=== PATIENT | male | born 1955 | race Caucasian/White ===

== ENCOUNTER 2016-09-11 22:42 | Emergency (ER) | payer OTHER ==
[2016-09-11] MEDS ORDERED: NS 1,000 ML IV ONE (22:58)
[2016-09-11] MEDS ORDERED: NS 2,100 ML IV ONE (22:59)
--- NOTE | 2016-09-11 23:02 | EDPHY ---
H & P HPI/ROS: HPI CHIEF COMPLAINT: Back pain, fever HISTORY OF PRESENT ILLNESS: This patient is 61-year-old male, presents emergency room with fever, tachycardia however normotensive, he has significant past medical history for bladder cancer status post bladder reconstructive surgery followed at [facility] he presents to the emergency room with feeling ill , fever and back pain. This patient tells me that he started developing fever back pain earlier today. Left-sided and right-sided CVA tenderness. No nausea vomiting. He had surgery at [facility] on the of last month. Close to a month ago. He has a bladder made out of intestines. He has a drain present. And a in-dwelling Vyas catheter. He called [facility] today, was unable to get in contact with them finally did was referred to the emergency room here. He denies chest pain or shortness of breath. Denies cough. Denies abdominal pain. Past Medical History: Depression, adrenal insufficiency, hyponatremia thyroid disease, bladder cancer, indwelling Vyas catheter, mantle Cell CA Past Surgical History: Bladder reconstruction surgery Social History: Denies daily use drugs alcohol tobacco products Family History: Noncontributory ROS REVIEW OF SYSTEMS: A comprehensive 10 point review of systems is otherwise negative aside from elements mentioned in the history of present illness. Exam Constitutional appears well nontoxic triage nursing summary reviewed, vital signs reviewed, awake/alert. Vital signs are noted to be febrile, tachycardic Eyes normal conjunctivae and sclera, EOMI, PERRLA. HENT normal inspection, atraumatic, moist mucus membranes, no epistaxis, neck supple/ no meningismus, no raccoon eyes. Respiratory clear to auscultation bilaterally, normal breath sounds, no respiratory distress, no wheezing. Cardiovascular tachycardia, regular rhythm, no murmur, no edema, distal pulses normal. Gastrointestinal soft, non-tender, no rebound, no guarding, normal bowel sounds, no distension, no pulsatile mass. Genitourinary no CVA tenderness. Musculoskeletal no midline vertebral tenderness, full range of motion, no calf swelling, no tenderness of extremities, no meningismus, good pulses, neurovascularly intact. Skin pink, warm, & dry, no rash, skin atraumatic. Neurologic awake, alert and oriented x 3, AAOx3, moves all 4 extremities equally, motor intact, sensory intact, CN II-XII intact, normal cerebellar, normal vision, normal speech. Psychiatric normal mood/affect. Heme/Lymph/Immune no lymphadenopathy. Differential Diagnosis: Includes but is not limited to in a particular order, urinary tract infection with sepsis, pyelonephritis, intra-abdominal abscess, severe sepsis, septic shock, bacteremia Medical Decision Making: Plan for this patient IV establishment, IV fluid bolus 30 mL/kilos. Fever controlled antipyretics Tylenol, check blood work, lactic acid, blood cultures, urinalysis, urine culture I will touch base with in [facility]. Re-evaluation: EKG interpretation by me on record in [facility] system. Impression time of EKG 05/08/1932, this is sinus tachycardia rate of 103. There is no acute ischemic changes on this EKG. Specifically no ST elevation, ST depression, prolonged intervals. There is no signs of cardiac arrhythmia. 1211AM: This patient is septic. Fever and tachycardic. I did speak with [facility] Dr. Cooper the urologist. He has accepted this patient in transfer given that he has bladder cancer status post bladder resection. Patient is hemodynamically stable at this time no acute distress. He safe for transfer. 1217 urinalysis indicates urinary tract infection. 1 g Rocephin has been given. Blood culture sent. Urine culture sent. Ultrasound has been done shows bilateral hydronephrosis. All this information be sent to [facility]. Patient be admitted to step-down unit. I do not feel he needs ICU care at this time. Lactic acid less than 2. Not hypotensive. I have updated the family they are agreeable for transfer. Source: Patient - Medical/Surgical History Hx Asthma: No Hx Chronic Respiratory Disease: No Hx Diabetes: No Hx Cardiac Disease: No Hx Renal Disease: No Hx Cirrhosis: No Hx Alcoholism: No Hx HIV/AIDS: No Hx Splenectomy or Spleen Trauma: No Other PMH: Rosemary's hypothyroidism, oral surgery, neck issues, adrenal insufficiency, bladder ca, mantle cell lymphoma, bladder removed - surg to create bladder from intestine - Social History Smoking Status: Former smoker Constitutional: Initial Vital Signs Temperature (C) 39.5 C H 09/11/16 22:47 Heart Rate 105 H 09/11/16 22:47 Respiratory Rate 20 09/11/16 22:47 Blood Pressure 122/69 H 09/11/16 22:47 O2 Sat (%) 93 09/11/16 22:47 O2 Delivery Mode Nasal Cannula O2 (L/minute) 2 Allergies/Adverse Reactions: amoxicillin Allergy (Verified 09/11/16 22:50) Home Medications: Medication Instructions Recorded Acetaminophen [Tylenol ES 500 mg 1,000 mg PO DAILY PRN 10/25/15 (*)] HYDROCORTISONE 15 mg PO DAILY 10/25/15 Levothyroxine Sodium 137 mcg PO DAILY@06 10/25/15 Hydrocortisone [Cortef 10 mg (*)] 5 mg PO DAILY@14 #0 tab 10/26/15 Colace 09/11/16 TESTOSTERONE 09/11/16 oxyCODONE CR 09/11/16 Medical Decision Making - Diagnostics Imaging Results: Imaging Impressions Abdomen/Pelvis Ultrasound 09/11/16 23:07 Impression: 1. Mild bilateral hydronephrosis. 2. Vyas catheter in the bladder which is empty. Findings and recommendations discussed with Emergency Department physician, Davis Garner MD at 0:11 hour, 09/12/2016. Final report concurs with initial preliminary interpretation. - Data Points Laboratory Results: Laboratory Results 09/11/16 23:10 09/11/16 23:10 09/11/16 09/11/16 09/11/16 23:14 23:10 23:10 WBC RBC Hgb POC Hgb 12.6 gm/dL L gm/dL (13.7-17.5) Hct POC Hct 37 % L % (40-51) MCV MCH MCHC RDW Plt Count MPV Neut % (Auto) Lymph % (Auto) Parmer % (Auto) Eos % (Auto) Baso % (Auto) Nucleat RBC Rel Count Absolute Neuts (auto) Absolute Lymphs (auto) Absolute Monos (auto) Absolute Eos (auto) Absolute Basos (auto) Absolute Nucleated RBC Immature Gran % Immature Gran # PT INR APTT VBG Lactic Acid POC Sodium 138 mEq/L mEq/L (134-144) Sodium 133 mEq/L L mEq/L (134-144) POC Potassium 3.6 mEq/L mEq/L (3.3-5.0) Potassium 3.9 mEq/L mEq/L (3.5-5.2) POC Chloride 102 mEq/L mEq/L (97-110) Chloride 103 mEq/L mEq/L (97-110) Carbon Dioxide 21 mEq/l L mEq/l (22-31) Anion Gap 9 mEq/L mEq/L (8-16) POC BUN 19 mg/dL mg/dL (7-23) BUN 19 mg/dL mg/dL (7-23) Creatinine 1.6 mg/dL H mg/dL (0.7-1.3) POC Creatinine 1.5 mg/dL H mg/dL (0.7-1.3) Estimated GFR 44 Glucose 87 mg/dL mg/dL (70-100) POC Glucose 88 mg/dL mg/dL (70-100) Calcium 9.4 mg/dL mg/dL (8.5-10.4) Total Bilirubin 0.5 mg/dL mg/dL (0.1-1.4) Conjugated Bilirubin 0.2 mg/dL mg/dL (0.0-0.5) Unconjugated Bilirubin 0.3 mg/dL mg/dL (0.0-1.1) AST 23 IU/L IU/L (17-59) ALT 29 IU/L IU/L (21-72) Alkaline Phosphatase 80 IU/L IU/L (38-126) Total Protein 8.1 g/dL g/dL (6.3-8.2) Albumin 4.1 g/dL g/dL (3.5-5.0) Lipase 58.0 IU/L IU/L (23-300) Urine Color YELLOW Urine Appearance MODERATELY TURBID Urine pH 7.0 (5.0-7.5) Ur Specific Wilson 1.012 (1.002-1.030) Urine Protein 2+ H (NEGATIVE) Urine Ketones NEGATIVE (NEGATIVE) Urine Blood 3+ H (NEGATIVE) Urine Nitrate POSITIVE H (NEGATIVE) Urine Bilirubin NEGATIVE (NEGATIVE) Urine Urobilinogen NEGATIVE EU EU (0.2-1.0) Ur Leukocyte Esterase 3+ H (NEGATIVE) Urine RBC 50-182 /hpf H /hpf (0-3) Urine WBC 50-182 /hpf H /hpf (0-3) Ur Epithelial Cells NONE SEEN /lpf /lpf (NONE-1+) Urine Bacteria TRACE /hpf H /hpf (NONE SEEN) Urine Mucus 1+ /lpf /lpf (NONE-1+) Urine Glucose NEGATIVE (NEGATIVE) 09/11/16 09/11/16 09/11/16 23:10 23:10 23:10 WBC 6.74 10^3/uL 10^3/uL (3.80-9.50) RBC 3.35 10^6/uL L 10^6/uL (4.40-6.38) Hgb 10.2 g/dL L g/dL (13.7-17.5) POC Hgb Hct 31.7 % L % (40.0-51.0) POC Hct MCV 94.6 fL fL (81.5-99.8) MCH 30.4 pg pg (27.9-34.1) MCHC 32.2 g/dL L g/dL (32.4-36.7) RDW 13.6 % % (11.5-15.2) Plt Count 328 10^3/uL 10^3/uL (150-400) MPV 9.1 fL fL (8.7-11.7) Neut % (Auto) 66.2 % % (39.3-74.2) Lymph % (Auto) 26.0 % % (15.0-45.0) Parmer % (Auto) 7.1 % % (4.5-13.0) Eos % (Auto) 0.0 % L % (0.6-7.6) Baso % (Auto) 0.7 % % (0.3-1.7) Nucleat RBC Rel Count 0.0 % % (0.0-0.2) Absolute Neuts (auto) 4.46 10^3/uL 10^3/uL (1.70-6.50) Absolute Lymphs (auto) 1.75 10^3/uL 10^3/uL (1.00-3.00) Absolute Monos (auto) 0.48 10^3/uL 10^3/uL (0.30-0.80) Absolute Eos (auto) 0.00 10^3/uL L 10^3/uL (0.03-0.40) Absolute Basos (auto) 0.05 10^3/uL 10^3/uL (0.02-0.10) Absolute Nucleated RBC 0.00 10^3/uL 10^3/uL (0-0.01) Immature Gran % 0.0 % % (0.0-1.1) Immature Gran # 0.00 10^3/uL 10^3/uL (0.00-0.10) PT 13.8 SEC SEC (12.0-15.0) INR 1.07 (0.83-1.16) APTT 27.5 SEC SEC (23.0-38.0) VBG Lactic Acid 1.2 mmol/L mmol/L (0.7-2.1) POC Sodium Sodium POC Potassium Potassium POC Chloride Chloride Carbon Dioxide Anion Gap POC BUN BUN Creatinine POC Creatinine Estimated GFR Glucose POC Glucose Calcium Total Bilirubin Conjugated Bilirubin Unconjugated Bilirubin AST ALT Alkaline Phosphatase Total Protein Albumin Lipase Urine Color Urine Appearance Urine pH Ur Specific Wilson Urine Protein Urine Ketones Urine Blood Urine Nitrate Urine Bilirubin Urine Urobilinogen Ur Leukocyte Esterase Urine RBC Urine WBC Ur Epithelial Cells Urine Bacteria Urine Mucus Urine Glucose Medications Given: Discontinued Medications Sodium Chloride (Ns) 1,000 mls @ 0 mls/hr IV EDNOW ONE; Wide Open PRN Reason: Protocol Stop: 09/11/16 22:59 Last Admin: 09/11/16 23:25 Dose: 1,000 mls Sodium Chloride (Ns) 2,100 mls @ 4,200 mls/hr 30 ml/kg infuse over 30 min ( 2100 ml) IV EDNOW ONE PRN Reason: Protocol Stop: 09/11/16 23:28 Last Admin: 09/11/16 23:50 Dose: 2,100 mls Ceftriaxone Sodium/Dextrose (Rocephin 1 Gm (Premix)) 50 mls @ 100 mls/hr IV EDNOW ONE PRN Reason: Protocol Stop: 09/12/16 00:16 Last Admin: 09/11/16 23:35 Dose: 50 mls Point of Care Test Results: 09/11/16 23:14 POC Sodium 138 POC Potassium 3.6 POC Chloride 102 POC BUN 19 POC Creatinine 1.5 H POC Glucose 88 Departure - Departure Disposition: [facility] Not [facility] Clinical Impression: UTI (urinary tract infection) Qualifiers: Urinary tract infection type: acute cystitis Hematuria presence: without hematuria Qualified Code(s): N30.00 - Acute cystitis without hematuria Sepsis Qualifiers: Sepsis type: sepsis due to unspecified organism Qualified Code(s): A41.9 - Sepsis, unspecified organism Condition: Fair Referrals: Tristan Cronin, [Primary Care Provider] - As per Instructions
[2016-09-11 23:31] LABS: COLOR YELLOW; LEUKOCYTE ESTERASE,URINE 3+ (NEGATIVE); NITRITE,URINE POSITIVE (NEGATIVE)
[2016-09-11 23:33] LABS: ADD DIFF? NO; ADD MORPH? NO; ADD SCAN? NO; ATYPICAL LYMPHOCYTE FLAG 20 (0-99); FRAGMENT RBC FLAG 0 (0-99); HEMATOCRIT 31.7 % (40.0-51.0); HEMOGLOBIN 10.2 g/dL (13.7-17.5); LEFT SHIFT FLG 0 (0-99); LIPEMIA HEMOLYSIS FLAG 80 (0-99); MEAN CELL HEMOGLOBIN 30.4 pg (27.9-34.1); MEAN CELL HEMOGLOBIN CONCENTR. 32.2 g/dL (32.4-36.7); MEAN CELL VOLUME 94.6 fL (81.5-99.8); MEAN PLATELET VOLUME 9.1 fL (8.7-11.7); PLATELET CLUMPS FLAG 0 (0-99); PLATELET COUNT 328 10^3/uL (150-400); RED BLOOD CELL COUNT 3.35 10^6/uL (4.40-6.38); RED CELL DISTRIBUTION WIDTH 13.6 % (11.5-15.2)
[2016-09-11 23:34] LABS: ALANINE AMINOTRANSFERASE 29 IU/L (21-72); ALBUMIN 4.1 g/dL (3.5-5.0); ALKALINE PHOSPHATASE 80 IU/L (38-126); ANION GAP 9 mEq/L (8-16); ASPARTATE AMINOTRANSFERASE 23 IU/L (17-59); BILIRUBIN,TOTAL 0.5 mg/dL (0.1-1.4); BILIRUBIN-CONJUGATED 0.2 mg/dL (0.0-0.5); BILIRUBIN-UNCONJUGATED 0.3 mg/dL (0.0-1.1); CALCIUM 9.4 mg/dL (8.5-10.4); CARBON DIOXIDE 21 mEq/l (22-31); CHLORIDE 103 mEq/L (97-110); CREATININE 1.6 mg/dL (0.7-1.3); GLOMERULAR FILTRATION RATE 44; GLUCOSE 87 mg/dL (70-100); POTASSIUM 3.9 mEq/L (3.5-5.2); SODIUM 133 mEq/L (134-144); TOTAL PROTEIN 8.1 g/dL (6.3-8.2)
--- NOTE | 2016-09-11 23:35 | CPEKG ---
Heart Rate: 103 RR Interval: 583 P-R Interval: 132 QRSD Interval: 86 QT Interval: 320 QTC Interval: 419 P Seminole: 55 QRS Seminole: 35 T Wave Seminole: 52 EKG Severity - OTHERWISE NORMAL ECG - EKG Impression: SINUS TACHYCARDIA Electronically Signed By: Davis Garner 12-Sep-2016 04:48:56
[2016-09-11 23:42] LABS: INR 1.07 (0.83-1.16); PROTIME(PATIENT) 13.8 SEC (12.0-15.0)
[2016-09-11 23:43] LABS: APTT 27.5 SEC (23.0-38.0)
[2016-09-12 00:22] LABS: BACTERIA TRACE /hpf (NONE SEEN); MUCUS 1+ /lpf (NONE-1+); RBC,URINE 50-182 /hpf (0-3); WBC,URINE 50-182 /hpf (0-3)
[2016-09-12] MEDS ORDERED: IBUPROFEN 600 MG TAB PO ONE (00:25)
[2016-09-12] MEDS ORDERED: ACETAMINOPHEN 500 MG TAB PO ONE (00:25)
[2016-09-12] MEDS ORDERED: NS 1,000 ML IV ONE (00:49)
[2016-09-12 02:41] VITALS: RESP 20
[2016-09-12 03:46] VITALS: BP 104/74; PULSE 114; TEMP 102.6; O2SAT 99
== END 2016-09-12 03:48 | disposition short-term general hospital (02) ==
DX: A41.9 Sepsis, unspecified organism (principal); N30.00 Acute cystitis without hematuria; E86.9 Volume depletion, unspecified; N13.30 Unspecified hydronephrosis; Z87.891 Personal history of nicotine dependence
CPT/HCPCS: 82947-QW; 96365; J0696

== ENCOUNTER 2016-10-16 16:59 | Emergency (ER) | payer OTHER ==
[2016-10-16 17:11] VITALS: TEMP 97.7
[2016-10-16] MEDS ORDERED: ONDANSETRON 4 MG/2 ML VIAL ONE (17:23)
[2016-10-16] MEDS ORDERED: ONDANSETRON 4 MG/2 ML VIAL IVP ONE (17:25)
[2016-10-16] MEDS ORDERED: NS 1,000 ML IV ONE (17:25)
--- NOTE | 2016-10-16 17:36 | EDPHY ---
H & P Stated Complaint: Acute R flank pain;ureteral stents removed Sunday Time Seen by Provider: 10/16/16 17:13 HPI/ROS: CHIEF COMPLAINT: Acute right flank pain, history of neobladder reconstruction, ureteral stent remove Sunday HISTORY OF PRESENT ILLNESS: The patient has a history of bladder cancer. He is status post neobladder reconstruction several months ago. The patient did have a postoperative course complicated by bacteremia and urinary tract infection which required IV antibiotic therapy. The patient completed IV antibiotics 3 weeks ago. The patient had removal of his ureteral stents 3 days ago was started on Levaquin. The patient presents to the ED with complaints of acute right flank pain, nausea and vomiting that began several hours prior to arrival. The patient rates his pain as a 10/10. He denies additional complaints of fever or chills. The patient denies any recent medication changes aside from the Levaquin. REVIEW OF SYSTEMS: A comprehensive 10 point review of systems is otherwise negative aside from elements mentioned in the history of present illness. Source: Patient Exam Limitations: No limitations - Personal History Current Tetanus Diphtheria and Acellular Pertussis (TDAP): Yes - Medical/Surgical History Hx Asthma: No Hx Chronic Respiratory Disease: No Hx Diabetes: No Hx Cardiac Disease: No Hx Renal Disease: No Hx Cirrhosis: No Hx Alcoholism: No Hx HIV/AIDS: No Hx Splenectomy or Spleen Trauma: No Other PMH: Rosemary's hypothyroidism, oral surgery, neck issues, adrenal insufficiency, bladder ca, mantle cell lymphoma, bladder removed - surg to create bladder from intestine - Social History Smoking Status: Former smoker - Physical Exam Exam: General Appearance: Alert, moderate discomfort secondary to pain Eyes: Pupils equal and round no pallor or injection ENT, Mouth: Mucous membranes moist Respiratory: There are no retractions, lungs are clear to auscultation Cardiovascular: Regular rate and rhythm Gastrointestinal: Tenderness to palpation right mid quadrant, right CVA tenderness Neurological: A&O, normal motor function, normal sensory exam, normal cranial nerves Skin: Warm and dry, no rashes Musculoskeletal: Neck is supple nontender Extremities: symmetrical, full range of motion Constitutional: Initial Vital Signs Temperature (C) 36.5 C 10/16/16 17:06 Heart Rate 71 10/16/16 17:06 Respiratory Rate 20 10/16/16 17:06 Blood Pressure 116/72 10/16/16 17:06 O2 Sat (%) 98 10/16/16 17:06 O2 Delivery Mode Room Air Allergies/Adverse Reactions: amoxicillin Allergy (Mild, Verified 10/16/16 17:05) ? n/v Home Medications: Medication Instructions Recorded Acetaminophen [Tylenol ES 500 mg 1,000 mg PO DAILY PRN 10/25/15 (*)] HYDROCORTISONE 15 mg PO DAILY 10/25/15 Levothyroxine Sodium 137 mcg PO DAILY@06 10/25/15 Hydrocortisone [Cortef 10 mg (*)] 5 mg PO DAILY@14 #0 tab 10/26/15 Colace 09/11/16 TESTOSTERONE 09/11/16 oxyCODONE CR 09/11/16 levOFLOXACIN [levAQUIN (*)] 500 mg PO 10/16/16 Medical Decision Making - Diagnostics Imaging Results: Imaging Impressions Abdomen/Pelvis Ultrasound 10/16/16 17:33 Impression: Moderate bilateral hydronephrosis, which has worsened from August 2016. Neobladder visualized with the volume approximating 366 mL. Results called and discussed with Dr. Pasha Hendrix on October 16, 2016 at 1855 hours. ED Course/Re-evaluation: ER course/discussion: I reviewed the patient's past medical records. The patient presents to the ED with acute right flank pain. The patient's creatinine is elevated 2.6 from his prior baseline of 1.6. The patient was taken for a stat retroperitoneal ultrasound which demonstrates right-sided hydronephrosis consistent with an acute obstruction of the right ureter. The patient has a normal bladder volume of 200 mL. The patient received IV morphine, IV Ativan, IV lidocaine for control of his pain. Consultation was made with Dr. Narvaez who is on-call for your urology-oncology at the [facility] who has accepted the patient for transfer given the patient's neobladder reconstruction and recent surgical intervention. 7:30 p.m.: The patient continues to have fairly moderate to severe pain. The patient received an IV lidocaine drip with improvement of his symptoms. The patient will be transferred to [facility] at 8:30 p.m. for further care. Differential Diagnosis: Differential diagnosis considered includes urinary retention, ureteral obstruction, renal failure, sepsis, urinary tract infection, metabolic abnormality, renal failure, hyperkalemia - Data Points Laboratory Results: Laboratory Results 10/16/16 17:30 10/16/16 17:30 10/16/16 10/16/16 17:30 17:30 WBC 8.53 10^3/uL 10^3/uL (3.80-9.50) RBC 3.51 10^6/uL L 10^6/uL (4.40-6.38) Hgb 10.3 g/dL L g/dL (13.7-17.5) Hct 32.3 % L % (40.0-51.0) MCV 92.0 fL fL (81.5-99.8) MCH 29.3 pg pg (27.9-34.1) MCHC 31.9 g/dL L g/dL (32.4-36.7) RDW 14.5 % % (11.5-15.2) Plt Count 295 10^3/uL 10^3/uL (150-400) MPV 9.3 fL fL (8.7-11.7) Neut % (Auto) 59.6 % % (39.3-74.2) Lymph % (Auto) 30.6 % % (15.0-45.0) Loving % (Auto) 9.0 % % (4.5-13.0) Eos % (Auto) 0.0 % L % (0.6-7.6) Baso % (Auto) 0.6 % % (0.3-1.7) Nucleat RBC Rel Count 0.0 % % (0.0-0.2) Absolute Neuts (auto) 5.08 10^3/uL 10^3/uL (1.70-6.50) Absolute Lymphs (auto) 2.61 10^3/uL 10^3/uL (1.00-3.00) Absolute Monos (auto) 0.77 10^3/uL 10^3/uL (0.30-0.80) Absolute Eos (auto) 0.00 10^3/uL L 10^3/uL (0.03-0.40) Absolute Basos (auto) 0.05 10^3/uL 10^3/uL (0.02-0.10) Absolute Nucleated RBC 0.00 10^3/uL 10^3/uL (0-0.01) Immature Gran % 0.2 % % (0.0-1.1) Immature Gran # 0.02 10^3/uL 10^3/uL (0.00-0.10) Sodium 140 mEq/L mEq/L (134-144) Potassium 5.3 mEq/L H mEq/L (3.5-5.2) Chloride 108 mEq/L mEq/L (97-110) Carbon Dioxide 18 mEq/l L mEq/l (22-31) Anion Gap 14 mEq/L mEq/L (8-16) BUN 43 mg/dL H mg/dL (7-23) Creatinine 2.6 mg/dL H mg/dL (0.7-1.3) Estimated GFR 25 Glucose 100 mg/dL mg/dL (70-100) Calcium 9.6 mg/dL mg/dL (8.5-10.4) Medications Given: Discontinued Medications Sodium Chloride (Ns) 1,000 mls @ 0 mls/hr IV ONCE ONE; Wide Open PRN Reason: Protocol Stop: 10/16/16 17:26 Last Admin: 10/16/16 17:27 Dose: 1,000 mls Ketamine HCl (Ketamine) 25 mg IVP EDNOW ONE Stop: 10/16/16 18:03 Last Admin: 10/16/16 18:05 Dose: 25 mg Lorazepam (Ativan Injection) 1 mg IVP EDNOW ONE Stop: 10/16/16 19:01 Last Admin: 10/16/16 19:05 Dose: 1 mg Morphine Sulfate (Morphine) 4 mg IVP EDNOW ONE Stop: 10/16/16 17:26 Last Admin: 10/16/16 17:27 Dose: 4 mg Morphine Sulfate (Morphine) 4 mg IVP EDNOW ONE Stop: 10/16/16 17:46 Last Admin: 10/16/16 17:46 Dose: 4 mg Ondansetron HCl (Zofran) 4 mg IVP EDNOW ONE Stop: 10/16/16 17:26 Last Admin: 10/16/16 17:27 Dose: 4 mg Departure - Departure Disposition: Acute Care Hospital Not [facility] Clinical Impression: Hydronephrosis, Bladder cancer, Abdominal pain Renal failure Qualifiers: Renal failure chronicity: acute on chronic Condition: Good Referrals: Tristan Cronin, [Primary Care Provider] - As per Instructions
[2016-10-16 17:44] LABS: % IMMATURE GRANULYOCYTES 0.2 % (0.0-1.1); ABSOLUTE IMMATURE GRANULOCYTES 0.02 10^3/uL (0.00-0.10); ADD DIFF? NO; ADD MORPH? NO; ADD SCAN? NO; ATYPICAL LYMPHOCYTE FLAG 10 (0-99); FRAGMENT RBC FLAG 20 (0-99); HEMATOCRIT 32.3 % (40.0-51.0); HEMOGLOBIN 10.3 g/dL (13.7-17.5); LEFT SHIFT FLG 0 (0-99); LIPEMIA HEMOLYSIS FLAG 80 (0-99); MEAN CELL HEMOGLOBIN 29.3 pg (27.9-34.1); MEAN CELL HEMOGLOBIN CONCENTR. 31.9 g/dL (32.4-36.7); MEAN PLATELET VOLUME 9.3 fL (8.7-11.7); PLATELET CLUMPS FLAG 10 (0-99); PLATELET COUNT 295 10^3/uL (150-400); RED BLOOD CELL COUNT 3.51 10^6/uL (4.40-6.38); RED CELL DISTRIBUTION WIDTH 14.5 % (11.5-15.2)
[2016-10-16] MEDS ORDERED: KETAMINE 100 MG/10 ML SYR ONE (18:01)
[2016-10-16] MEDS ORDERED: KETAMINE 500 MG/10 ML VIAL IVP ONE (18:02)
[2016-10-16 18:21] LABS: ANION GAP 14 mEq/L (8-16); CALCIUM 9.6 mg/dL (8.5-10.4); CARBON DIOXIDE 18 mEq/l (22-31); CHLORIDE 108 mEq/L (97-110); CREATININE 2.6 mg/dL (0.7-1.3); GLOMERULAR FILTRATION RATE 25; GLUCOSE 100 mg/dL (70-100); POTASSIUM 5.3 mEq/L (3.5-5.2); SODIUM 140 mEq/L (134-144)
[2016-10-16] MEDS ORDERED: LORazepam 2 MG/ML INJ IVP ONE (19:00)
[2016-10-16] MEDS ORDERED: LIDOCAINE 1% 200 MG in NS 100 ML IV ONE (19:01)
[2016-10-16 20:18] VITALS: BP 127/73; PULSE 72; RESP 20; O2SAT 100
== END 2016-10-16 20:16 | disposition short-term general hospital (02) ==
DX: C67.9 Malignant neoplasm of bladder, unspecified (principal); N13.30 Unspecified hydronephrosis; N17.9 Acute kidney failure, unspecified; N18.9 Chronic kidney disease, unspecified; E86.9 Volume depletion, unspecified; Z87.891 Personal history of nicotine dependence
CPT/HCPCS: 96374; J2060; J2405

== ENCOUNTER 2016-11-15 20:50 | Inpatient (IN) | payer OTHER ==
[2016-11-15] MEDS ORDERED: NS 1,000 ML IV ONE ×2 (21:15→22:42)
[2016-11-15 21:24] LABS: % IMMATURE GRANULYOCYTES 0.4 % (0.0-1.1); ABSOLUTE IMMATURE GRANULOCYTES 0.04 10^3/uL (0.00-0.10); ADD DIFF? NO; ADD MORPH? NO; ADD SCAN? NO; ATYPICAL LYMPHOCYTE FLAG 10 (0-99); FRAGMENT RBC FLAG 0 (0-99); HEMATOCRIT 34.5 % (40.0-51.0); HEMOGLOBIN 10.9 g/dL (13.7-17.5); LEFT SHIFT FLG 0 (0-99); LIPEMIA HEMOLYSIS FLAG 80 (0-99); MEAN CELL HEMOGLOBIN CONCENTR. 31.6 g/dL (32.4-36.7); MEAN CELL VOLUME 88.7 fL (81.5-99.8); MEAN PLATELET VOLUME 9.3 fL (8.7-11.7); PLATELET CLUMPS FLAG 10 (0-99); PLATELET COUNT 216 10^3/uL (150-400); RED BLOOD CELL COUNT 3.89 10^6/uL (4.40-6.38); RED CELL DISTRIBUTION WIDTH 14.8 % (11.5-15.2)
--- NOTE | 2016-11-15 21:24 | EDPHY ---
H & P Stated Complaint: fever, post nephrostomy catheter exchange 11/08 - Personal History Current Tetanus/Diphtheria Vaccine: No - Medical/Surgical History Hx Asthma: No Hx Chronic Respiratory Disease: No Hx Diabetes: No Hx Cardiac Disease: No Hx Renal Disease: No Hx Cirrhosis: No Hx Alcoholism: No Hx HIV/AIDS: No Hx Splenectomy or Spleen Trauma: No Other PMH: Rosemary's hypothyroidism, oral surgery, neck issues, adrenal insufficiency, bladder ca, mantle cell lymphoma, bladder removed - surg to create bladder from intestine - Social History Smoking Status: Former smoker Time Seen by Provider: 11/15/16 21:03 HPI/ROS: CHIEF COMPLAINT: Fever, history of bladder cancer status post neobladder reconstruction HISTORY OF PRESENT ILLNESS: The patient presents to the ED with a 1 day history of fever. The patient is several months status post neobladder reconstruction. This was complicated by 2 postoperative infections. The patient was seen in our emergency department approximately 1 month ago with severe flank pain. At that point time he was noted to have right obstructive uropathy. He was transferred to the [facility] where he underwent stent placement. The patient tells me that he had a ureteral stent placed several weeks ago. The patient had been instructed to keep his nephrostomy tube patent. He reportedly clamped nephrostomy tube 5 days ago. He seemed to be doing relatively well aside from mild self described bladder spasms. Today the patient developed increasing lower abdominal pain and spasms. He contacted his urologist at the [facility] who prescribed an antispasmodic agent. He also advised the patient to open his nephrostomy tube. The patient reportedly developed a fever abruptly this evening to 39.5 with shaking chills. The patient reported when he opened his nephrostomy tube he experienced a usual amount of drainage. He did have some improvement of his symptoms of flank pain. The patient denies any diarrhea or additional acute complaints currently. REVIEW OF SYSTEMS: A comprehensive 10 point review of systems is otherwise negative aside from elements mentioned in the history of present illness. (Pasha Hendrix) - Physical Exam Exam: General Appearance: Alert, no distress Eyes: Pupils equal and round no pallor or injection ENT, Mouth: Mucous membranes moist Respiratory: There are no retractions, lungs are clear to auscultation Cardiovascular: Regular rate and rhythm Gastrointestinal: Minimal suprapubic tenderness to palpation, no peritoneal symptoms Back: Right-sided nephrostomy tube, no obvious erythema Neurological: A&O, normal motor function, normal sensory exam, normal cranial nerves Skin: Warm and dry, no rashes Musculoskeletal: Neck is supple nontender Extremities: symmetrical, full range of motion (Pasha Hendrix) Constitutional: Initial Vital Signs Temperature (C) 39.5 C H 11/15/16 20:55 Heart Rate 125 H 11/15/16 20:55 Respiratory Rate 16 11/15/16 20:55 Blood Pressure 138/74 H 11/15/16 20:55 O2 Sat (%) 95 11/15/16 20:55 O2 Delivery Mode Room Air O2 (L/minute) 2 Allergies/Adverse Reactions: amoxicillin Allergy (Mild, Verified 10/16/16 17:05) ? n/v Home Medications: Medication Instructions Recorded Acetaminophen [Tylenol ES 500 mg 1,000 mg PO DAILY PRN 10/25/15 (*)] HYDROCORTISONE 15 mg PO DAILY 10/25/15 Levothyroxine Sodium 137 mcg PO DAILY@06 10/25/15 Hydrocortisone [Cortef 10 mg (*)] 5 mg PO DAILY@14 #0 tab 10/26/15 Colace 09/11/16 TESTOSTERONE 09/11/16 oxyCODONE CR 09/11/16 levOFLOXACIN [levAQUIN (*)] 500 mg PO 10/16/16 Medical Decision Making ED Course/Re-evaluation: The patient presents to the ED with fever to 39.5, shaking chills in the setting of a known nephrostomy tube and bladder surgery. The patient had an IV established. Blood cultures x2 are obtained. I reviewed the results of the patient's past medical records. In August the patient was noted to have evidence of Staph epididymis bacteremia. The patient presents to the ED with SIRS (fever, tachycardia, leukocytosis) + infection (likely pyelonephritis). The patient's initial lactate was elevated at 2.3. After IV fluid rehydration his lactic acid has normalized to 1.0. Consultation was made with on-call urologic oncologist at the [facility] at 10:30 p.m.. I spoke with Dr. Cooper who recommends a renal/neobladder ultrasound to exclude the presence of severe hydronephrosis or urinary retention. Provided the study is normal he is comfortable with the patient be admitted to [facility]. Consultation was made with Dr. Orin Li from the hospitalist service. Informing her of the discussion with Urology. (Pasha Hendrix) 1:30 a.m.- I received sign-out on this patient at approximately 11:00 p.m.. He had an ultrasound performed in the emergency department which did not demonstrate any worsening urinary retention as compared with his prior study. This is discussed with the radiologist, Dr. Brown. The patient's pressure decreased while in the emergency room during this time, most recently is 79/49 with a map of 57. I spoke with the patient, he says he does have a history of adrenal insufficiency for which he takes hydrocortisone at home. He has required IV hydrocortisone while admitted to the hospital frequently including during his recent admission to the [facility]. I have ordered him hydrocortisone 100 mg here. We will monitor him for a bit longer to make sure his pressures improves. 2:15 a.m.- The patient received IV hydrocortisone and blood pressure has improved marginally. He did receive a 2 L fluid bolus. His maps are now greater than 65. The hospitalist is aware and we have changed him to a Step-Down Unit bed for now. He does have a port in place which if needed could be used for pressors. I do not feel the need to place a central line at this time. (Leena Davila) Differential Diagnosis: Differential diagnosis considered includes sepsis, severe sepsis, pyelonephritis , acute renal failure (Pasha Hendrix) Critical Care Time: Critical care time exclusive of procedures and exclusive of the PA's time was 55 minutes, performed by myself, Pasha Hendrix MD. The patient presents to the ED with severe sepsis with history of acute renal failure secondary to ureteral obstruction. The patient presents to the ED with symptoms consistent with recurrent bacteremia. The patient received broad-spectrum antibiotics. The patient received aggressive IV fluid rehydration. The patient required consultation by the Urologic Oncology service and hospitalist service at [facility]. (Pasha Hendrix) - Data Points Laboratory Results: Laboratory Results 11/15/16 21:15 11/15/16 21:15 11/15/16 11/15/16 11/15/16 22:01 21:20 21:15 WBC RBC Hgb POC Hgb Hct POC Hct MCV MCH MCHC RDW Plt Count MPV Neut % (Auto) Lymph % (Auto) [place] % (Auto) Eos % (Auto) Baso % (Auto) Nucleat RBC Rel Count Absolute Neuts (auto) Absolute Lymphs (auto) Absolute Monos (auto) Absolute Eos (auto) Absolute Basos (auto) Absolute Nucleated RBC Immature Gran % Immature Gran # VBG Lactic Acid 1.0 mmol/L D mmol/L (0.7-2.1) POC Sodium Sodium 141 mEq/L mEq/L (134-144) POC Potassium Potassium 4.1 mEq/L mEq/L (3.5-5.2) POC Chloride Chloride 106 mEq/L mEq/L (97-110) Carbon Dioxide 20 mEq/l L mEq/l (22-31) Anion Gap 15 mEq/L mEq/L (8-16) POC BUN BUN 24 mg/dL H mg/dL (7-23) Creatinine 1.3 mg/dL mg/dL (0.7-1.3) POC Creatinine Estimated GFR 56 Glucose 104 mg/dL H mg/dL (70-100) POC Glucose Calcium 9.9 mg/dL mg/dL (8.5-10.4) Urine Color YELLOW Urine Appearance MODERATELY TURBID Urine pH 6.0 (5.0-7.5) Ur Specific [place] 1.010 (1.002-1.030) Urine Protein 2+ H (NEGATIVE) Urine Ketones NEGATIVE (NEGATIVE) Urine Blood 2+ H (NEGATIVE) Urine Nitrate NEGATIVE (NEGATIVE) Urine Bilirubin NEGATIVE (NEGATIVE) Urine Urobilinogen NEGATIVE EU EU (0.2-1.0) Ur Leukocyte Esterase 3+ H (NEGATIVE) Urine RBC 10-15 /hpf H /hpf (0-3) Urine WBC 25-50 /hpf H /hpf (0-3) Ur Epithelial Cells TRACE /lpf /lpf (NONE-1+) Urine Bacteria 1+ /hpf H /hpf (NONE SEEN) Hyaline Casts 1-5 /lpf /lpf (0-1) Urine Mucus TRACE /lpf /lpf (NONE-1+) Urine Glucose NEGATIVE (NEGATIVE) 11/15/16 11/15/16 11/15/16 21:15 21:15 21:09 WBC 11.15 10^3/uL H 10^3/uL (3.80-9.50) RBC 3.89 10^6/uL L 10^6/uL (4.40-6.38) Hgb 10.9 g/dL L g/dL (13.7-17.5) POC Hgb 13.3 gm/dL L gm/dL (13.7-17.5) Hct 34.5 % L % (40.0-51.0) POC Hct 39 % L % (40-51) MCV 88.7 fL fL (81.5-99.8) MCH 28.0 pg pg (27.9-34.1) MCHC 31.6 g/dL L g/dL (32.4-36.7) RDW 14.8 % % (11.5-15.2) Plt Count 216 10^3/uL 10^3/uL (150-400) MPV 9.3 fL fL (8.7-11.7) Neut % (Auto) 71.6 % % (39.3-74.2) Lymph % (Auto) 20.9 % % (15.0-45.0) [place] % (Auto) 6.7 % % (4.5-13.0) Eos % (Auto) 0.0 % L % (0.6-7.6) Baso % (Auto) 0.4 % % (0.3-1.7) Nucleat RBC Rel Count 0.0 % % (0.0-0.2) Absolute Neuts (auto) 7.99 10^3/uL H 10^3/uL (1.70-6.50) Absolute Lymphs (auto) 2.33 10^3/uL 10^3/uL (1.00-3.00) Absolute Monos (auto) 0.75 10^3/uL 10^3/uL (0.30-0.80) Absolute Eos (auto) 0.00 10^3/uL L 10^3/uL (0.03-0.40) Absolute Basos (auto) 0.04 10^3/uL 10^3/uL (0.02-0.10) Absolute Nucleated RBC 0.00 10^3/uL 10^3/uL (0-0.01) Immature Gran % 0.4 % % (0.0-1.1) Immature Gran # 0.04 10^3/uL 10^3/uL (0.00-0.10) VBG Lactic Acid 2.3 mmol/L H mmol/L (0.7-2.1) POC Sodium 144 mEq/L mEq/L (134-144) Sodium POC Potassium 4.1 mEq/L mEq/L (3.3-5.0) Potassium POC Chloride 108 mEq/L mEq/L (97-110) Chloride Carbon Dioxide Anion Gap POC BUN 28 mg/dL H mg/dL (7-23) BUN Creatinine POC Creatinine 1.5 mg/dL H mg/dL (0.7-1.3) Estimated GFR Glucose POC Glucose 105 mg/dL H mg/dL (70-100) Calcium Urine Color Urine Appearance Urine pH Ur Specific [place] Urine Protein Urine Ketones Urine Blood Urine Nitrate Urine Bilirubin Urine Urobilinogen Ur Leukocyte Esterase Urine RBC Urine WBC Ur Epithelial Cells Urine Bacteria Hyaline Casts Urine Mucus Urine Glucose Medications Given: Acetaminophen (Tylenol) 500 - 1,000 mg PO Q6HRS PRN PRN Reason: Pain, Mild/Fever, Can Take PO Stop: 05/15/17 02:43 Last Admin: 11/16/16 06:18 Dose: 1,000 mg Discontinued Medications Acetaminophen (Tylenol) 650 mg PO EDNOW ONE Stop: 11/15/16 22:09 Last Admin: 11/15/16 22:09 Dose: 650 mg Acetaminophen (Tylenol) 325 mg PO EDNOW ONE Stop: 11/15/16 23:48 Last Admin: 11/15/16 23:49 Dose: 325 mg Hydrocortisone (Solucortef) 100 mg IVP ONCE ONE Stop: 11/16/16 01:36 Last Admin: 11/16/16 01:43 Dose: 100 mg Sodium Chloride (Ns) 1,000 mls @ 0 mls/hr IV EDNOW ONE; Wide Open PRN Reason: Protocol Stop: 11/15/16 21:16 Last Admin: 11/15/16 21:37 Dose: 1,000 mls Vancomycin/Sodium Chloride (Vancomycin 1 Gm (Premix)) 250 mls @ 250 mls/hr IV EDNOW ONE PRN Reason: Protocol Stop: 11/15/16 22:46 Last Admin: 11/15/16 23:39 Dose: 250 mls Ceftriaxone Sodium/Dextrose (Rocephin 1 Gm (Premix)) 50 mls @ 100 mls/hr IV EDNOW ONE PRN Reason: Protocol Stop: 11/15/16 22:16 Last Admin: 11/15/16 21:55 Dose: 50 mls Sodium Chloride (Ns) 1,000 mls @ 0 mls/hr IV EDNOW ONE; Wide Open PRN Reason: Protocol Stop: 11/15/16 22:43 Last Admin: 11/16/16 00:30 Dose: 1,000 mls Sodium Chloride (Ns) 1,000 mls @ 0 mls/hr IV EDNOW ONE; Wide Open PRN Reason: Protocol Stop: 11/16/16 02:06 Last Admin: 11/16/16 02:09 Dose: 1,000 mls Ondansetron HCl (Zofran) 4 mg IVP EDNOW ONE Stop: 11/15/16 21:34 Last Admin: 11/15/16 21:37 Dose: 4 mg Point of Care Test Results: 11/15/16 21:09 POC Sodium 144 POC Potassium 4.1 POC Chloride 108 POC BUN 28 H POC Creatinine 1.5 H POC Glucose 105 H Departure - Departure Disposition: [facility] Inpatient Acute Clinical Impression: Severe sepsis, Pyelonephritis Condition: Fair
[2016-11-15] MEDS ORDERED: ONDANSETRON 4 MG/2 ML VIAL IVP ONE (21:33)
[2016-11-15 21:36] LABS: ANION GAP 15 mEq/L (8-16); CALCIUM 9.9 mg/dL (8.5-10.4); CARBON DIOXIDE 20 mEq/l (22-31); CHLORIDE 106 mEq/L (97-110); CREATININE 1.3 mg/dL (0.7-1.3); GLOMERULAR FILTRATION RATE 56; GLUCOSE 104 mg/dL (70-100); POTASSIUM 4.1 mEq/L (3.5-5.2); SODIUM 141 mEq/L (134-144)
[2016-11-15 21:41] LABS: COLOR YELLOW; LEUKOCYTE ESTERASE,URINE 3+ (NEGATIVE); NITRITE,URINE NEGATIVE (NEGATIVE)
[2016-11-15] MEDS ORDERED: VANCOMYCIN HCL/NORMAL SALINE 250 ML IV ONE (21:47)
[2016-11-15 21:49] LABS: BACTERIA 1+ /hpf (NONE SEEN); MUCUS TRACE /lpf (NONE-1+); WBC,URINE 25-50 /hpf (0-3)
[2016-11-15] MEDS ORDERED: ACETAMINOPHEN 325 MG TAB PO ONE ×2 (22:08→23:47)
[2016-11-15] MEDS ORDERED: ACETAMINOPHEN 325 MG TAB ONE (23:45)
[2016-11-16] MEDS ORDERED: PIPERACILLIN/TAZO 3.375 GM/DEX 50 ML IV ONE (01:31)
[2016-11-16] MEDS ORDERED: HYDROCORTISONE 100 MG/2 ML VIAL ONE (01:38)
[2016-11-16] MEDS: HYDROCORTISONE 100 MG/2 ML VIAL IVP ONE (01:43)
[2016-11-16] MEDS ORDERED: NS 1,000 ML IV ONE (02:05)
[2016-11-16] MEDS ORDERED: ACETAMINOPHEN 500 MG TAB PO PRN (02:44)
[2016-11-16] MEDS ORDERED: ONDANSETRON 4 MG/2 ML VIAL IVP PRN (02:44)
[2016-11-16] MEDS ORDERED: oxyCODONE IR 5 MG TAB PO PRN (02:44)
[2016-11-16] MEDS ORDERED: ONDANSETRON DISINTEGRATING 4 MG TAB PO PRN (02:44)
[2016-11-16] MEDS ORDERED: PROMETHAZINE HCL 25 MG/ML INJ IVP PRN (02:44)
--- NOTE | 2016-11-16 02:58 | PDGENHP ---
History and Physical - Chief Complaint fever/bladder spasm - History of Present Illness 61 yo M with PMH of bladder cancer s/p cystectomy and neobladder formation approximately 3 months ago at [facility] presenting with fever, increased right flank pain and shaking chills. Patient had similar issues approximately 2 months ago and at that time was found to have sepsis and staph epi bacteremia. Since his neobladder formation he has required placement of bilateral nephroureteral stents and right percutaneous nephrostomy tube. For the last 5 days or so he had the perc neph tube clamped, but today when the pain was increased, he was instructed by urology to unclamp it. When he did that, there was drainage of approximately 150ml of urine that was clear and some relief of the pain. Fevers and shaking chills began however after that and continued since arrival to the ER. He notes no sob or cough, no n/v/diarrhea. He did have some itching skin 3 days ago that improved with benadryl but otherwise no rash. In the ER patient was given 2L NS as well as vancomycin and ceftriaxone. Urology at [facility] was called and they stated that so long as no new hydro noted on US, patient was safe to be cared for here rather than transfer to [facility]. He was febrile in ER and became increasingly hypotensive to the 80s/50s. Per patient and his , whenever he is sick, his adrenal insufficiency gets worse and his BP drops. History Information - Allergies/Home Medication List Allergies/Adverse Reactions: amoxicillin Allergy (Mild, Verified 10/16/16 17:05) ? n/v Home Medications: Acetaminophen [Tylenol ES 500 mg (*)] 1,000 mg PO DAILY PRN 10/25/15 [Last Taken 10/24/15] HYDROCORTISONE 15 mg PO DAILY 10/25/15 [Last Taken 10/25/15] Levothyroxine Sodium 137 mcg PO DAILY@06 10/25/15 [Last Taken 10/25/15] Colace 09/11/16 [Last Taken Unknown] TESTOSTERONE 09/11/16 [Last Taken Unknown] oxyCODONE CR 09/11/16 [Last Taken Unknown] levOFLOXACIN [levAQUIN (*)] 500 mg PO 10/16/16 [Last Taken Unknown] I have personally reviewed and updated: family history, medical history, social history, surgical history - Past Medical History cancer (bladder cancer, lymphoma), GERD Additional medical history: secondary adrenal insufficiency. hypothyroid/ hashimotos - Surgical History Reports: cancer surgery (cystectomy and neobladder formation) Additional surgical history: bilateral nephroureteral stents. right perc neph tube. ankle surgery. LN biopsy - Family History Additional family history: Father with Graves disease/suicide. Brother liver cancer - Social History Smoking Status: Former smoker Alcohol Use: Occasionally Drug Use: Marijuana (CBD oil ) Additional social history: Review of Systems Review of Systems: ROS: 10pt was reviewed & negative except for what was stated in HPI & below Physical Exam Physical Exam: Temp Pulse Resp BP Pulse Ox 38.0 C 115 H 18 87/46 L 97 11/16/16 01:55 11/16/16 01:55 11/16/16 01:55 11/16/16 01:55 11/16/16 01:55 O2 (L/minute) 2 Constitutional: appears nourished, uncomfortable Eyes: PERRL, anicteric sclera Ears, Nose, Mouth, Throat: moist mucous membranes, hearing normal Cardiovascular: regular rate and rhythym, tachycardia, No edema Respiratory: no respiratory distress, no rales or rhonchi, clear to auscultation Gastrointestinal: normoactive bowel sounds, other (surgical incision hernia not tender/reducible), No guarding, No rebound Genitourinary: no bladder tenderness, other (right perc neph without surrounding erythema or purulence) Skin: warm, normal color Musculoskeletal: full muscle strength Neurologic: AAOx3 Psychiatric: interacting appropriately, not anxious, not encephalopathic Lab Data & Imaging Review 11/15/16 21:15 11/15/16 21:15 WBC 11.15 10^3/uL (3.80-9.50) H 11/15/16 21:15 RBC 3.89 10^6/uL (4.40-6.38) L 11/15/16 21:15 Hgb 10.9 g/dL (13.7-17.5) L 11/15/16 21:15 POC Hgb 13.3 gm/dL (13.7-17.5) L 11/15/16 21:09 Hct 34.5 % (40.0-51.0) L 11/15/16 21:15 POC Hct 39 % (40-51) L 11/15/16 21:09 MCV 88.7 fL (81.5-99.8) 11/15/16 21:15 MCH 28.0 pg (27.9-34.1) 11/15/16 21:15 MCHC 31.6 g/dL (32.4-36.7) L 11/15/16 21:15 RDW 14.8 % (11.5-15.2) 11/15/16 21:15 Plt Count 216 10^3/uL (150-400) 11/15/16 21:15 MPV 9.3 fL (8.7-11.7) 11/15/16 21:15 Neut % (Auto) 71.6 % (39.3-74.2) 11/15/16 21:15 Lymph % (Auto) 20.9 % (15.0-45.0) 11/15/16 21:15 [place] % (Auto) 6.7 % (4.5-13.0) 11/15/16 21:15 Eos % (Auto) 0.0 % (0.6-7.6) L 11/15/16 21:15 Baso % (Auto) 0.4 % (0.3-1.7) 11/15/16 21:15 Nucleat RBC Rel Count 0.0 % (0.0-0.2) 11/15/16 21:15 Absolute Neuts (auto) 7.99 10^3/uL (1.70-6.50) H 11/15/16 21:15 Absolute Lymphs (auto) 2.33 10^3/uL (1.00-3.00) 11/15/16 21:15 Absolute Monos (auto) 0.75 10^3/uL (0.30-0.80) 11/15/16 21:15 Absolute Eos (auto) 0.00 10^3/uL (0.03-0.40) L 11/15/16 21:15 Absolute Basos (auto) 0.04 10^3/uL (0.02-0.10) 11/15/16 21:15 Absolute Nucleated RBC 0.00 10^3/uL (0-0.01) 11/15/16 21:15 Immature Gran % 0.4 % (0.0-1.1) 11/15/16 21:15 Immature Gran # 0.04 10^3/uL (0.00-0.10) 11/15/16 21:15 VBG Lactic Acid 1.0 mmol/L (0.7-2.1) D 11/15/16 22:01 POC Sodium 144 mEq/L (134-144) 11/15/16 21:09 Sodium 141 mEq/L (134-144) 11/15/16 21:15 POC Potassium 4.1 mEq/L (3.3-5.0) 11/15/16 21:09 Potassium 4.1 mEq/L (3.5-5.2) 11/15/16 21:15 POC Chloride 108 mEq/L (97-110) 11/15/16 21:09 Chloride 106 mEq/L (97-110) 11/15/16 21:15 Carbon Dioxide 20 mEq/l (22-31) L 11/15/16 21:15 Anion Gap 15 mEq/L (8-16) 11/15/16 21:15 POC BUN 28 mg/dL (7-23) H 11/15/16 21:09 BUN 24 mg/dL (7-23) H 11/15/16 21:15 Creatinine 1.3 mg/dL (0.7-1.3) 11/15/16 21:15 POC Creatinine 1.5 mg/dL (0.7-1.3) H 11/15/16 21:09 Estimated GFR 56 11/15/16 21:15 Glucose 104 mg/dL (70-100) H 11/15/16 21:15 POC Glucose 105 mg/dL (70-100) H 11/15/16 21:09 Calcium 9.9 mg/dL (8.5-10.4) 11/15/16 21:15 Urine Color YELLOW 11/15/16 21:20 Urine Appearance MODERATELY TURBID 11/15/16 21:20 Urine pH 6.0 (5.0-7.5) 11/15/16 21:20 Ur Specific [place] 1.010 (1.002-1.030) 11/15/16 21:20 Urine Protein 2+ (NEGATIVE) H 11/15/16 21:20 Urine Ketones NEGATIVE (NEGATIVE) 11/15/16 21:20 Urine Blood 2+ (NEGATIVE) H 11/15/16 21:20 Urine Nitrate NEGATIVE (NEGATIVE) 11/15/16 21:20 Urine Bilirubin NEGATIVE (NEGATIVE) 11/15/16 21:20 Urine Urobilinogen NEGATIVE EU (0.2-1.0) 11/15/16 21:20 Ur Leukocyte Esterase 3+ (NEGATIVE) H 11/15/16 21:20 Urine RBC 10-15 /hpf (0-3) H 11/15/16 21:20 Urine WBC 25-50 /hpf (0-3) H 11/15/16 21:20 Ur Epithelial Cells TRACE /lpf (NONE-1+) 11/15/16 21:20 Urine Bacteria 1+ /hpf (NONE SEEN) H 11/15/16 21:20 Hyaline Casts 1-5 /lpf (0-1) 11/15/16 21:20 Urine Mucus TRACE /lpf (NONE-1+) 11/15/16 21:20 Urine Glucose NEGATIVE (NEGATIVE) 11/15/16 21:20 Visualized and Interpreted imaging results: Yes Interpretation: abd US: right sided stent, hydro decreased from prior. debris in bladder, likely infectoin Assessment & Plan Assessment: Pyelonephritis (Acute) Severe sepsis (Acute) 61 yo M with PMH of bladder cancer s/p neobladder as well as secondary AI presenting with fever, rigors and sepsis presumed 2/2 urinary source # severe sepsis: patient with leukocytosis, ongoing fever, tachycardia and lactate elevation that has now improved in setting of likely complicated urinary infection. He has been moderately hypotensive though not symptomatic with that which is likely multifactorial due to sepsis as well as AI. Blood and urine cxs pending. CXR ordered for completeness. Will admit to SDU, continue fluid resuscitation, steroids, abx and initiate pressor support if MAPS consistently <55. ID consulted. # complicated urinary tract infection: with both neobladder in place and perc neph tube as well as nephroureteral stents in place. Difficult to interpret reliably UA in this patient and UA actually looks slightly pin cleaner than last time. Started on vanc/cefepime for now (last blood cxs with staph epi) and otherwise as above # flank pain: in the setting of a clamped perc neph tube with pain improved since unclamping, plan was reviewed with urology who do not think he requires more urgent surgical evaluation so long as no increased hydro, which was not present. # adrenal insufficiency/adrenal crisis: with worsening hypotension suspect imminent adrenal crisis, started on IV hydrocortisone 100 q8 for now # bladder cancer: treatment has been as above through [facility] # chronic medical issues: GERD, hypothyroid--resume home medications when list reconciled # IP status, patient high risk with unstable vital signs and requiring high level of care Patient new to my care. Old records reviewed and summarized as above. Care plan reviewed with ER doc as above. Further hx obtained from patients present at bedside.
[2016-11-16] MEDS ORDERED: LEVOTHYROXINE 137 MCG TAB PO SCH (06:30)
[2016-11-16] MEDS ORDERED: LIDOCAINE/PRILOCAINE 1 EACH CRTUBE TP PRN (06:41)
[2016-11-16 08:13] LABS: ADD DIFF? YES; ADD MORPH? NO; ATYPICAL LYMPHOCYTE FLAG 0 (0-99); FRAGMENT RBC FLAG 0 (0-99); HEMATOCRIT 28.4 % (40.0-51.0); HEMOGLOBIN 9.1 g/dL (13.7-17.5); LIPEMIA HEMOLYSIS FLAG 80 (0-99); MEAN CELL HEMOGLOBIN 28.3 pg (27.9-34.1); MEAN CELL VOLUME 88.2 fL (81.5-99.8); MEAN PLATELET VOLUME 9.9 fL (8.7-11.7); PLATELET CLUMPS FLAG 10 (0-99); PLATELET COUNT 154 10^3/uL (150-400); RED BLOOD CELL COUNT 3.22 10^6/uL (4.40-6.38); RED CELL DISTRIBUTION WIDTH 15.1 % (11.5-15.2)
[2016-11-16 08:15] LABS: ADD SCAN? NO; LEFT SHIFT FLG 190 (0-99)
[2016-11-16 08:16] LABS: ALANINE AMINOTRANSFERASE 30 IU/L (21-72); ALBUMIN 2.9 g/dL (3.5-5.0); ALKALINE PHOSPHATASE 50 IU/L (38-126); ANION GAP 9 mEq/L (8-16); ASPARTATE AMINOTRANSFERASE 18 IU/L (17-59); BILIRUBIN,TOTAL 0.5 mg/dL (0.1-1.4); BILIRUBIN-CONJUGATED 0.3 mg/dL (0.0-0.5); BILIRUBIN-UNCONJUGATED 0.2 mg/dL (0.0-1.1); CALCIUM 8.1 mg/dL (8.5-10.4); CARBON DIOXIDE 20 mEq/l (22-31); CHLORIDE 112 mEq/L (97-110); CREATININE 1.3 mg/dL (0.7-1.3); GLOMERULAR FILTRATION RATE 56; GLUCOSE 96 mg/dL (70-100); POTASSIUM 4.2 mEq/L (3.5-5.2); SODIUM 141 mEq/L (134-144)
[2016-11-16] MEDS: ENOXAPARIN 40 MG/0.4 ML SYR SC SCH (08:47)
[2016-11-16] MEDS: HYDROCORTISONE 100 MG/2 ML VIAL IVP SCH ×3 (08:47→21:46)
[2016-11-16] MEDS: CEFEPIME HCL 2 GM in D5W 100 ML IV SCH ×2 (08:47→21:46)
[2016-11-16] MEDS ORDERED: PHENYLEPHRINE HCL 50 MG in D5W 250 ML IV SCH (09:00)
[2016-11-16] MEDS ORDERED: VASOPRESSIN/DEXTROSE 250 ML IV SCH (09:00)
[2016-11-16] MEDS ORDERED: ALTEPLASE 2 MG VIAL IVP PRN (09:20)
--- NOTE | 2016-11-16 09:27 | HOSPPROG ---
Hospitalist Progress Note Assessment/Plan: # septic shock - source likely urine - place picc, start pressors, transfer to icu # central AI - stress dose steroids # suspected UTI/pyelo in setting of neobladder, ureteral stents, R perc neph - had staph epi bacteremia 1 month ago - cont with vanc/cefepime - ID consult # MIRTA - resolved # bladder cancer s/p neobladder, chemo; recent diagnosis; treated at # lymphoma, mantle cell - watching without treatment currently # gerd # hypothyroid - synthroid 35 minutes floor/bedside critical care time managing septic shock Subjective: feels slightly better today; still weak, not terribly dizzy Objective: Vital Signs Temp Pulse Resp BP Pulse Ox 37.1 C 122 H 19 93/42 L 98 11/16/16 07:44 11/16/16 07:44 11/16/16 07:44 11/16/16 07:44 11/16/16 07:44 Laboratory Results 11/16/16 07:46 11/16/16 07:46 11/15/16 11/16/16 11/17/16 05:59 05:59 05:59 Intake Total 4280 Output Total 520 Balance 3760 - Physical Exam Constitutional: not in pain Cardiovascular: no murmur, rub, or gallop, tachycardia, other (R port without erythema) Respiratory: no respiratory distress, no rales or rhonchi, clear to auscultation Gastrointestinal: normoactive bowel sounds, soft, non-tender abdomen, no palpable masses Skin: warm ICD10 Worksheet Patient Problems: Problems Problem Status Onset Hyponatremia Acute Nausea and vomiting Acute Low hemoglobin and low hematocrit Acute Agitation Acute Severe sepsis Acute Pyelonephritis Acute
[2016-11-16 09:35] LABS: PLATELET ESTIMATE ADEQUATE (ADEQ)
[2016-11-16] MEDS: NOREPINEPHRINE/NS 500 ML IV SCH ×3 (09:45→21:46)
[2016-11-16] MEDS ORDERED: VANCOMYCIN HCL/NORMAL SALINE 250 ML IV SCH (11:30)
--- NOTE | 2016-11-16 13:52 | ASMTCMCOM ---
CM Note CM Note Notes: Patient admitted with septic shock from likely urinary source. Patient has a urologic history including recent neobladder formation and uretal stents placed at [facility]. Lives independently with . No therapy evals have been ordered, anticipate discharge home when medically stable. CM available if needs change. Date Signed: 11/16/2016 01:51 PM Electronically Signed By:Yamilet Gould RN
[2016-11-16] MEDS ORDERED: HEPARIN/DEXTROSE 25,000 UNIT/500 ML BAG ONE (15:10)
--- NOTE | 2016-11-16 15:26 | GCON ---
[f rep st] CONSULTATION CRITICAL CARE CONSULTATION DATE OF CONSULTATION: 11/16/2016 HISTORY OF PRESENT ILLNESS: This patient is a 61-year-old male with a history of bladder cancer as w ell as mantle cell lymphoma, who has had quite a bit of difficulty with his urinary tract. He had a cystectomy and neobladder procedure in July of 2016 that has been complicated by ureteral strictures, requiring bilateral stents. He has been followed primarily at [facility]. A couple of we eks ago, toward the end of September, his stents had been discontinued, but he developed hydronephrosis. A Vyas catheter was placed, and he decompressed his bladder and underwent a percutaneous nephrosto my tube placement on 10/19. On 11/08/2016, his percutaneous nephrostomy tube was changed to a nephro ureteral tube without difficulty, and about a week later, he had been clamping his nephrostomy tube a nd was developing complaints of back pain. At that time, he was able to decompress again from his pe rcutaneous nephroureteral tube and was able to drain that, so he did, but he did develop fevers and c hills after that and came to the hospital. He was found to have a white count of 11 and some chills as well, was given ceftriaxone, vancomycin, and even after a liter of fluid, his blood pressure dropp ed to the 80s. He was continued on antibiotics and IV fluids overnight, but his mean arterial pressu re was consistently low and was started on Levophed today for blood pressure control in the setting o f septic shock. Symptomatically, the patient has been doing quite well, and he has no complaints of sinus disease or headaches or cough or purulent sputum or shortness of breath. There has been no kristan st pain. No palpitations. No diarrhea. No abdominal pain other than that described above. No skin breakdown. No new rashes, though he did recently have quite a bit of itching that seems to have coi ncided with his sepsis picture. PAST MEDICAL HISTORY: Includes: 1. Mantle cell lymphoma, the details of which are unknown. 2. Bladder cancer, as described above. 3. Pilonidal cyst in the past. 4. 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 5. Gastroesophageal reflux disease. 6. Adrenal insufficiency, due likely to at least a partially empty sella. This was diagnosed on MRI on October 22, 2015. 7. 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 8. Hypogonadism, requiring testosterone replacement. 9. He has also had an episode of Staph epidermidis bacteremia in the [id number] past. PAST SURGICAL HISTORY: Includes the cystectomy as described above, nephrostomy tube placement as tino cribed, bilateral ureteral stents, neobladder formation, a remote ankle surgery, an IV port in July, remote prostatectomy, presumably for prostate cancer, which is not mentioned in his history. SOCIAL HISTORY: He is a former smoker of about a pack a day for 10 years but quit in 2003. No signi ficant alcohol. FAMILY HISTORY: Includes liver cancer in his brother, Graves disease in the father and depression as well. CURRENT MEDICATIONS: Include cefepime, Lovenox, hydrocortisone 100 mg IV q.8, Synthroid, Levophed at 10 mcg/kg, Zofran, oxycodone, Phenergan, vancomycin, and vasopressin. PHYSICAL EXAMINATION: VITAL SIGNS: His blood pressure currently is 105/68 with a MAP of 80, heart r ate 81, respirations 18, oxygen saturation 96% on room air. GENERAL: He was asleep when I got to mn s room but easily aroused. Alert and oriented x3. HEENT: Pupils are equally round, reactive to lig ht. Nonicteric and noninjected. Mucous membranes are moist, without erythema or exudate. NECK: Multani pple, without adenopathy or jugular vein distention. LUNGS: Breath sounds are clear to auscultation bilaterally, without wheezes, rubs, or rales. HEART: Regular rate and rhythm without obvious murmu r. No rubs or gallops. ABDOMEN: Soft and nontender, without hepatosplenomegaly. EXTREMITIES: No clubbing, cyanosis, or edema. SKIN: His nephrostomy tube sites are clean and dry, without evidence of obvious infection. Skin does not show any evidence of breakdown or cellulitis. NEUROLOGIC: Nonf ocal, including cranial nerves, deep tendon reflexes. OBJECTIVE DATA: Includes blood cultures with gram-negative rods. His white count today is 21 with h ematocrit of 28, platelets of 154. Basic metabolic panel shows a bicarb of 20 but creatinine of 1.3, which is stable. Albumin 2.9. LFTs were unremarkable. Urinalysis was positive for 3+ leukocyte es terase, bacteria, and white cells. Urine cultures are pending at this time. Chest x-ray was negative. An abdominal ultrasound showed a decrease in hydronephrosis and suggested that there were stents. His notes from [facility] suggest that stents had been removed. ASSESSMENT AND PLAN: 1. Septic shock, likely a genitourinary source related to his urinary tract at this time, particular ly with his gram-negative rods. His antibiotics seem reasonable to me, with cefepime and vancomycin at this time. Infectious Disease has been consulted, and we will await further sensitivities on his current cultures from his blood. I do not suspect the adrenal insufficiency is a major problem right now, since he has been on high-dose hydrocortisone for the last at least 12-18 hours. We did check a NICOM, and he was not fluid responsive, so no additional fluids are needed. This is very unlikely to be a cardiac source, given his history, but if his hypotension persists, we may consider an echoca rdiogram in the near future. In terms of source control for him, we might consider a CT scan, should he not show signs of improvement, looking for evidence of a perinephric abscess, for example, or ot er complications related to his recent procedures and neobladder. I would like to recheck his lactat e. His lactate was 2.3 on admission, dropped to 1 last night, but that was before he required the hi gh-dose pressors. 2. Adrenal insufficiency. At this point, I would leave him on hydrocortisone at 100 mg q.8 hours. 3. Hypothyroidism. He can continue his normal dose of levothyroxine as well. A total of about 45 minutes of critical care time was required for this patient with severe septic sh ock. /[id number]/MODL
[2016-11-16] MEDS ORDERED: ATROPINE SULFATE 1 MG/10 ML SYR ONE (16:37)
--- NOTE | 2016-11-16 16:53 | CPEKG ---
Heart Rate: 59 RR Interval: 1017 P-R Interval: 200 QRSD Interval: 86 QT Interval: 444 QTC Interval: 440 P [place]: 74 QRS [place]: 56 T Wave [place]: 41 EKG Severity - ABNORMAL ECG - EKG Impression: SINUS RHYTHM EKG Impression: MULTIPLE ATRIAL PREMATURE COMPLEXES EKG Impression: MOBITZ II AV BLOCK Electronically Signed By: Damaso Chen 16-Nov-2016 17:25:22
--- NOTE | 2016-11-16 19:32 | GCON ---
[f rep st] CONSULTATION REFERRING PHYSICIAN: Matt Peñaloza MD REASON FOR REFERRAL: Septic shock. Likely urinary source. HISTORY OF PRESENT ILLNESS: Patient is a 61-year-old male with a history of bladder cancer who had a cystectomy and neobladder formation surgery at [facility] approximately 4 months ago. Kaiden win has been admitted now twice with urinary infection complications. The patient relates that he has also been diagnosed with small caliber ureters which required stenting on the right side. He saxena s been able to urinate normally but it requires that he put some external pressure over the neobladde r over his abdomen to help urinate normally out of his urethra. The patient also had a nephrostomy t ube placed a number of weeks ago in the right kidney but this has been clamped for a few weeks. The patient had been noting increasing pain and discomfort in the low back and he was advised to unclamp this nephrostomy tube a few days prior to admission. The patient noted once the nephrostomy tube was unclamped, that 150 cc of urine was expelled from that nephrostomy tube. The patient was admitted t hrough the emergency room and started on vancomycin and cefepime. Upon admission last night, his tem perature maximum was 39.6 degrees. He has had a temp max today of 38.3 degrees at 6 o'clock this mor glen. He feels somewhat improved. PAST MEDICAL HISTORY: 1. Bladder cancer. 2. Lymphoma. 3. Gastroesophageal reflux disease. 4. Adrenal insufficiency. 5. 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 PAST SURGICAL HISTORY: 1. Status post cystectomy and neobladder formation. 2. Status post nephroureteral stent placement. 3. Status post right percutaneous nephrostomy tube placement. 4. Status post ankle surgery. 5. Status post lymph node biopsy. ANTIBIOTICS: 1. Vancomycin. 2. Cefepime. ALLERGIES: The patient has an allergy to amoxicillin. SOCIAL HISTORY: Patient is a remote smoker. Occasional alcohol use and currently uses marijuana-zoe ived oil. He is . FAMILY HISTORY: Reviewed but noncontributory. REVIEW OF SYSTEMS: Other than that detailed above in History of Present Illness, a comprehensive 10- system review was negative. PHYSICAL EXAMINATION: VITAL SIGNS: Temperature maximum 39.6. Temperature current is 36.9. Heart r ate is 102. Respiratory rate is 18. Blood pressure is 80/45. GENERAL: The patient is a well-forme d, well-nourished male in no acute distress. He is mildly toxic in appearance. He is alert and orie nted x3. He has a pleasant demeanor. HEENT: Normocephalic for age. Atraumatic. No scleral icteru s. No oral lesion. No drainage from the nares. Eyes: Lids and conjunctiva are within normal limit s. Pupils are equal and round bilaterally. NECK: Supple. No meningismus. LUNGS: Clear to auscul tation bilaterally with good effort. HEART: Tachycardic, but regular. No murmur, rub, or gallop no loren. No significant peripheral edema. ABDOMEN: Soft. Mildly tender to palpation. No masses or re bound. SKIN: Warm and dry to the touch. No rash or lesions noted. Patient does have a neph tube o n the right flank. MUSCULOSKELETAL: No other muscle or flank tenderness is noted. No joint lines o r effusion or arthritis is seen. NEURO: Cranial nerves 2 through 12 seem to be intact. Peripheral sensation seems intact in extremities. LABORATORY DATA: Patient has a CBC dated 11/16/2016, shows a white blood cell count of 21.2, hemoglo bin of 9.1, hematocrit of 28.4, platelet count of 154. Differential is left-shifted with 71% mature segmented neutrophils and 15% band forms. Serum chemistries on 11/16/2016, show sodium 141, potassiu m 4.2, chloride of 112, bicarbonate of 20, BUN of 23, and creatinine of 1.3. AST is 18 and ALT is 30 . Urinalysis on 11/15/2016, shows 3+ leukocyte esterase, 10-15 red blood cells and 25-50 white blood cells per high-power field. MICROBIOLOGIC DATA: Patient has blood cultures dated 11/15/2016; 2/2 are growing gram-negative jeff i dentified by PCR as Pseudomonas aeruginosa. Patient has a urine culture dated 11/15/2016; which is a lso growing Pseudomonas aeruginosa as well as a gram-negative jeff lactose metaphysicist. ASSESSMENT: Sepsis/septic shock secondary to gram-negative jeff bloodstream infection, likely due to bloodstream infection with colonization in the neobladder. I think that there is a problem with empt racheal the neobladder in this patient. The patient has the situation where the urine in the neobladder does not very easily flow through the urethra and externally the way that the construct is intended. I think instead it often backs up into the neobladder and then retro-fluxes up the ureters. I thin k given that the neobladder is small intestine and is normally colonized with bacteria, this presents a situation where the patient could be expected to be at higher risk of severe gram-negative infecti ons. We will discontinue the vancomycin but continue the cefepime. We will follow sensitivity panel s and adjust appropriately. PLAN: 1. Discontinue vancomycin. 2. Continue cefepime. 3. Follow up with his urologist at [facility]. I did call the urology clinic today and gave my cell number and spoke to a nurse in that clinic but have not received a call back from urolog ist as of late this evening. Thank you. /[id number]/MODL
--- NOTE | 2016-11-16 21:16 | ECHO ---
[email or web address] [address] [address] Main: [phone] Fax: Transthoracic Echocardiogram Name: ESTEFANY MICHAUD MR#: [id number] Study Date: 11/16/2016 Study Time: 05:46 PM Date of : 1955 Age: 61 year(s) Height: 175.3 cm (69 in.) Weight: 69.85 kg (154 lb.) BSA: 1.85 m2 Gender: Male Examination: Echo Indication: Bradycardia, Sepsis Image Quality: Contrast: Requested by: Pasha Hargrove BP: 126 mmHg/53 mmHg Heart Rate: 69 bpm Rhythm: Sinus bradycardia Indication: Bradycardia, Sepsis Procedure Staff Utility Lineman: Michael Duncan Physician: Requesting Provider: Measurements: Chambers Valvular Assessment AV/MV Valvular Assessment TV/PV Normal Normal Normal Name Value Range Name Value Range Name Value Range Ao Shayna (MM): 2.9 cm (2.2 cm-3.7 AV Vmax: 1.21 m/s (1 m/s-1.7 TR Vmax: 2.39 mm/s ( - ) cm) m/s) TR PGmax: 23 mmHg ( - ) IVSd (2D): 0.8 cm (0.6 cm-1.1 AV maxP mmHg ( - ) syst. PAP: 28 mmHg ( - ) cm) LVOT Vmax: 0.95 m/s (0.7 m/s-1.1 PV Vmax: 0.86 cm/s (0.6 m/s-0.9 LVDd (2D): 4.7 cm (4.2 cm-5.9 m/s) m/s) cm) MV E Vmax: 0.89 m/s ( - ) PV PGmax: 3 mmHg ( - ) LVDs (2D): 3.0 cm (2.1 cm-4 MV A Vmax: 0.64 m/s ( - ) cm) MV E/A: 1.39 ( - ) LVPWd (2D): 0.9 cm (0.6 cm-1 cm) LVEF (2D): 68 % (>=54 %) Continued Measurements: Chambers Valvular Assessment AV/MV Valvular Assessment TV/PV Name Value Name Value Name Value LADs Lon.8 cm MV E/E' Septal: 8.50 CVP (est.): 5 LA Area: 18.3 cm2 MV E/E' Lateral: 8.90 LA Volume: 55 ml LA Volume Index: 29.7 ml/m2 Findings: Left Ventricle: Normal size left ventricle. No LV hypertrophy. Normal global systolic LV function. EF is 68 %. No regional wall motion abnormality. Normal diastolic LV function. Patient: ESTEFANY MICHAUD Study Date: 11/16/2016 Page 1 of 2 05:46 PM Right Ventricle: Normal size right ventricle. Left Atrium: The left atrium is normal in size. Right Atrium: The right atrium is normal in size. A catheter is discernible in right atrium. Mitral Valve: The mitral valve is normal in appearance and function. Aortic Valve: The aortic valve is normal in appearance and function. Tricuspid Valve: The tricuspid valve is normal in appearance and function. Trivial to mild tricuspid valve regurgitation. The pulmonary artery pressure is normal. Pulmonic Valve: The pulmonic valve is normal in appearance and function. Aorta: The aorta is normal. Pericardium: No pericardial effusion. (No Signature Object) Patient: ESTEFANY MICHAUD Study Date: 11/16/2016 Page 2 of 2 05:46 PM [id number]
[2016-11-17] MEDS: LEVOTHYROXINE 137 MCG TAB PO SCH (05:36)
[2016-11-17] MEDS: HYDROCORTISONE 100 MG/2 ML VIAL IVP SCH ×3 (05:36→21:13)
[2016-11-17] MEDS: NS 1,000 ML IV SCH ×2 (05:40→05:53)
[2016-11-17 05:57] LABS: ADD DIFF? YES; ADD MORPH? NO; ATYPICAL LYMPHOCYTE FLAG 0 (0-99); FRAGMENT RBC FLAG 0 (0-99); HEMATOCRIT 27.7 % (40.0-51.0); HEMOGLOBIN 8.8 g/dL (13.7-17.5); LIPEMIA HEMOLYSIS FLAG 80 (0-99); MEAN CELL HEMOGLOBIN 28.7 pg (27.9-34.1); MEAN CELL HEMOGLOBIN CONCENTR. 31.8 g/dL (32.4-36.7); MEAN CELL VOLUME 90.2 fL (81.5-99.8); MEAN PLATELET VOLUME 9.9 fL (8.7-11.7); PLATELET CLUMPS FLAG 0 (0-99); PLATELET COUNT 144 10^3/uL (150-400); RED BLOOD CELL COUNT 3.07 10^6/uL (4.40-6.38); RED CELL DISTRIBUTION WIDTH 15.5 % (11.5-15.2)
[2016-11-17 05:58] LABS: ADD SCAN? NO; LEFT SHIFT FLG 100 (0-99)
[2016-11-17 06:11] LABS: ANION GAP 7 mEq/L (8-16); CARBON DIOXIDE 18 mEq/l (22-31); CHLORIDE 117 mEq/L (97-110); GLOMERULAR FILTRATION RATE > 60; GLUCOSE 122 mg/dL (70-100); POTASSIUM 3.9 mEq/L (3.5-5.2); SODIUM 142 mEq/L (134-144)
[2016-11-17 06:38] LABS: PLATELET ESTIMATE DECREASED (ADEQ)
[2016-11-17] MEDS: NOREPINEPHRINE/NS 500 ML IV SCH (06:52)
[2016-11-17] MEDS: ENOXAPARIN 40 MG/0.4 ML SYR SC SCH (09:15)
[2016-11-17] MEDS: CEFEPIME HCL 2 GM in D5W 100 ML IV SCH ×3 (09:15→17:21)
--- NOTE | 2016-11-17 10:10 | HOSPPROG ---
Hospitalist Progress Note Assessment/Plan: # septic shock - source is urinary and bacteremia - cont levophed # pseudomonas bacteremia - cont cefepime, appreciate ID consult # UTI/pyelo in setting of neobladder, ureteral stents, R perc neph - had staph epi bacteremia 1 month ago # central AI - stress dose steroids # heart block - Wenckebach per cards - no treatment necessary # MIRTA - resolved # bladder cancer s/p neobladder, chemo; recent diagnosis; treated at # lymphoma, mantle cell - watching without treatment currently # gerd # hypothyroid - synthroid 40 minutes floor/bedside critical care time managing septic shock Subjective: continues to feel slightly better Objective: Vital Signs Temp Pulse Resp BP Pulse Ox 37.1 C 52 L 18 108/58 L 97 11/17/16 04:00 11/17/16 09:43 11/17/16 09:43 11/17/16 09:43 11/17/16 09:43 Laboratory Results 11/17/16 05:35 11/17/16 05:35 11/16/16 11/17/16 11/18/16 05:59 05:59 05:59 Intake Total 4280 2830 1800 Output Total 520 2295 300 Balance 3760 535 1500 - Physical Exam Constitutional: no apparent distress, appears nourished Cardiovascular: regular rate and rhythym, systolic murmur, No irregularly irregular Respiratory: no respiratory distress, no rales or rhonchi, clear to auscultation Gastrointestinal: normoactive bowel sounds, soft, non-tender abdomen, no palpable masses ICD10 Worksheet Patient Problems: Problems Problem Status Onset Hyponatremia Acute Nausea and vomiting Acute Low hemoglobin and low hematocrit Acute Agitation Acute Severe sepsis Acute Pyelonephritis Acute
[2016-11-17] MEDS ORDERED: IOPAMIDOL (ISOVUE-300) 100 ML BTL ONE (11:27)
--- NOTE | 2016-11-17 11:27 | PCMIDPN ---
Assessment/Plan: 1. Pseudomonal sepsis secondary to urinary source in this patient with complicated genitourinary anatomy/ history of cystectomy and neobladder construction in July: Patient reports that right ureteral stent placed at the [facility] last Sunday. Shortly thereafter he became ill with fevers and shaking chills. His pseudomonal isolate is susceptible to the quinolones; will likely transition him to oral quinolone therapy upon discharge. For now, increase cefepime to 2 g IV q.8 hours, and repeat blood cultures. Hopefully,his port has not been seeded. I have also asked micro lab to speciate and obtain sensitivities on the lactose laboratory animal care veterinarian in his urine, so we are aware of his colonization isolates moving forward. Agree with plans for urology consultation here, so they can communicate as well with his urologist at [facility], Dr. Winifred Wick. Will also obtain CT scan with intravenous contrast to rule out perinephric or intrarenal abscess or other abnormality associated with his complicated genitourinary anatomy. Over 35 minutes was spent with this patient today, obtaining additional history and coordinating care. Subjective: Patient is now off pressors. Feels better. Is urinating through his urethra without difficulty, although admits to frequent episodes of mucous debris/ mucous plugging associated with urinating through his urethra. Patient reports having a right ureteral stent placed at [facility] last Sunday with nephrostomy bag placed. Plan was to re-evaluate in 6 weeks and remove bag at that time with possible stent change. Patient states he became ill perhaps 24-48 hours after this procedure. Objective: Cefepime 2 g IV q.12 hours day 1. Afebrile Vital Signs Temp Pulse Resp BP Pulse Ox 37.1 C 72 19 95/56 L 93 11/17/16 04:00 11/17/16 11:00 11/17/16 11:00 11/17/16 11:00 11/17/16 11:00 Laboratory Results 11/17/16 05:35 11/17/16 05:35 11/16/16 11/17/16 11/18/16 05:59 05:59 05:59 Intake Total 4280 2830 1800 Output Total 520 2295 300 Balance 3760 535 1500 Blood cultures from November 1503/25 bottles Pseudomonas aeruginosa Urine culture also with Pseudomonas and lactose laboratory animal care veterinarian,10-20k colony-forming units - Physical Exam General Appearance: alert, no apparent distress EENT: pharynx normal Respiratory: lungs clear Cardiac/Chest: regular rate, rhythm Abdomen: non-tender, soft, other (Well-healed surgical incision mid abdomen.) Back: other (Nephrostomy tube on the right, clear urine in the bag.) Skin: No rash, No embolic lesions ICD10 Worksheet Patient Problems: Problems Problem Status Onset Pyelonephritis Acute Severe sepsis Acute Agitation Acute Hyponatremia Acute Low hemoglobin and low hematocrit Acute Nausea and vomiting Acute
[2016-11-17] MEDS ORDERED: diphenhydrAMINE 25 MG CAP PO ONE (12:15)
--- NOTE | 2016-11-17 14:02 | PDINTPN ---
Gear Setter Progress Note Assessment/Plan: Assessment/plan: 61 M with complex bladder cancer history including neobladder formation, ureteral stents and removal, percutaneous nephrostomy tube placement and exchange for nephroureteral tubes; complicated by development of chills and hypotension. He was admitted for urosepsis and treated with IVF, broad spectrum abx, and pressors. Blood and urine cultures grew sensitive Pseudomonas with rapid improvement in hemodynamics. * Septic shock- much better today and off all pressors. Discussed case with ID who recommends eventual change to levaquin since max sensitive. Possible etiology is ureteral reflux given neobladder, but will defer to urology (at and left message). Agree with CT abdo/pelvis to ensure no perinephric abscess. * Mobitz type II AV block (Wenckebach)- transient and apparently associated with levophed. Now in NSR with appropriate HR. Cardiology consult performed but not yet dictated. * Leukocytosis- possibly related to hydrocortisone since all other infectious parameters look better * Adrenal insufficiency- remains on high dose hydrocortisone- may be able to begin titration back to baseline. Subjective: Stable overnight and off pressors Objective: Vital Signs Temp Pulse Resp BP Pulse Ox 36.4 C 52 L 18 83/46 L 97 11/17/16 12:08 11/17/16 12:08 11/17/16 12:08 11/17/16 12:08 11/17/16 12:08 Laboratory Results 11/17/16 05:35 11/17/16 05:35 11/16/16 11/17/16 11/18/16 05:59 05:59 05:59 Intake Total 4280 2830 1800 Output Total 520 2295 300 Balance 3760 535 1500 Physical Exam - Physical Exam General Appearance: WD/WN, alert, no apparent distress EENT: PERRL/EOMI Neck: supple Respiratory: lungs clear, normal breath sounds, No respiratory distress Cardiac/Chest: regular rate, rhythm, No edema Abdomen: normal bowel sounds, non-tender, soft, No distended Skin: normal color, warm/dry, No cyanosis Lymphatic: no adenopathy Extremities: No pedal edema Neuro/Psych: alert, normal mood/affect, oriented x 3 ICD10 Worksheet Patient Problems: Problems Problem Status Onset Pyelonephritis Acute Severe sepsis Acute Agitation Acute Hyponatremia Acute Low hemoglobin and low hematocrit Acute Nausea and vomiting Acute
--- NOTE | 2016-11-17 15:52 | ASMTCMCOM ---
CM Note CM Note Notes: Pt is currently on IV ABX, ID is following. Urology consult requested 2/2 his complicated urological situation. CM will continue to follow for any d/c needs. Date Signed: 11/17/2016 03:51 PM Electronically Signed By:CHRISTOS Hutchinson
[2016-11-17 16:29] LABS: ALBUMIN 3.1 g/dL (3.5-5.0); BILIRUBIN,TOTAL 0.2 mg/dL (0.1-1.4); BILIRUBIN-CONJUGATED 0.2 mg/dL (0.0-0.5); TOTAL PROTEIN 6.3 g/dL (6.3-8.2)
--- NOTE | 2016-11-17 17:36 | GCON ---
[f rep st] CONSULTATION DATE OF CONSULTATION: 11/17/2016 REASON FOR CONSULTATION: I have been asked to see the patient in consultation by Dr. Matt pacheco in regard to an abnormal gallbladder seen on CT scan. HISTORY OF PRESENT ILLNESS: This 61-year-old male has had a complicated past medical history. He un derwent a cystectomy for bladder cancer in July of this year at [facility] with construction of a neobladder. He was then hospitalized with pseudomonal sepsis, hospitalized for stent replaceme nt, and now again with pseudomonal sepsis. He is growing Pseudomonas aeruginosa out of both urine an d blood. A CT scan of the abdomen was ordered today which shows a thick-walled gallbladder measuring at 7 mm w all thickness. Surprisingly, this is new from ultrasound studies of a day prior. Despite this, the patient denies right upper quadrant pain and has been tolerating an oral diet. His liver function te sts are normal. The patient has a white blood count today of 26,000, a hematocrit of 27, and a normal creatinine. PHYSICAL EXAMINATION: GENERAL: A pleasant male who looks much better than his white blood count and CT scan would suggest. LUNGS: Clear. ABDOMEN: Soft. Benign. Healed midline incision. Negative Ojnes sign. IMPRESSION: I have reviewed the ultrasound and CT scan, and the gallbladder clearly has a thick wall . Given the Pseudomonas in both urine and blood as the source of his current admission, I think it i s unlikely this is all coming from an infected gallbladder with his fairly benign exam and normal LFT s. I have recommended a HIDA scan to hopefully put the issue of acute cholecystitis to rest. Should the gallbladder fill, I do not think we need to worry about it being an infected gallbladder despite the wall thickness. This test likely will be done Sunday morning. I will follow patient with you . /[id number]/MODL
--- NOTE | 2016-11-17 20:17 | GCON ---
[f rep st] CONSULTATION This is a 61-year-old male with past history of bladder cancer as well as mantle cell lymphoma, who had urosepsis earlier in the year. The patient had a cystectomy and neobladder procedure in July of 2011, complicated by ureteral stricture requiring bilateral stents at [facility] 2-3 weeks back. He had hydronephrosis. Vyas catheter was placed. He was decompressed and underwent per percutaneous nephrostomy tube placement on 10/19/2016. On 2016, his percutaneous nephrostomy tube was changed to a nephroureteral tube without difficulty and about a week later he has been clamping his nephrostomy tube. However, he complains of back pain associated with that, with inability to decompress the percutaneous tube. Later on, he developed fever and chills. Was found to have white count of 11,000. Came to the hospital and was given ceftriaxone, vancomycin, and IV fluids, and then has been placed on Levophed. He denies any palpitations, lightheadedness, dizziness. No presyncope or syncope. His activity level has been normal. However, overnight he was noted to have low heart rate. Tele monitor was evaluated and it was noted to be Wenckebach periodicity. PAST MEDICAL HISTORY: Mantle cell lymphoma, bladder cancer, pilonidal cyst, degenerative joint disease, GERD, adrenal insufficiency, hypothyroidism, hypogonadism. PAST SURGICAL HISTORY: Cystectomy, nephrostomy tube placement, bilateral ureteral tube, neobladder formation, ankle surgery, IV port placement, prostatectomy. SOCIAL HISTORY: Previous smoker, quit in 2013. No significant alcohol use. FAMILY HISTORY: Liver cancer, Graves disease, and depression. MEDICATIONS: In the [facility] and reviewed. PHYSICAL EXAM: VITAL SIGNS: Blood pressure 105/68, pulse of 62, respiratory rate 16. GENERAL: Patient awake, alert, oriented. HEENT: Pupils equal, reacting to light, accommodating. Nonicteric, noninjected. Mucous membranes moist without erythema or exudate. NECK: Supple without adenopathy or jugular venous distention. LUNGS: Clear. No rales, rhonchi, rub. HEART: S1, S2 regular. No S3. No murmurs. ABDOMEN: Soft, nontender. No guarding or rigidity. Bowel sounds present. EXTREMITIES: No edema. SKIN: nephrostomy tube sites clean and dry without obvious infection. LABS: Evaluated. Tele monitor shows Wenckebach periodicity. Echocardiogram shows normal EF of 68%. IMPRESSION AND PLAN: This is a 61-year-old with urosepsis who had Wenckebach phenomena in the middle of the night. This is normal physiologic phenomena. This is not indicative of vegetation on the heart valve. If he continues to have fever and there are other indications of vegetation, then ADOLFO may be recommended. However, the current telemonitor is indicative of normal physiology and since it happened in the middle of the night, it is Wenckebach periodicity which requires no further Rx in the absence of symptoms. Thank you for letting us participate in the patient's care. Feel free to call us for questions. /[id number]/MODL MTDD
[2016-11-18] MEDS: CEFEPIME HCL 2 GM in D5W 100 ML IV SCH ×3 (00:21→16:48)
[2016-11-18 05:01] LABS: % IMMATURE GRANULYOCYTES 1.3 % (0.0-1.1); ABSOLUTE IMMATURE GRANULOCYTES 0.24 10^3/uL (0.00-0.10); ADD DIFF? NO; ADD MORPH? NO; ADD SCAN? NO; ATYPICAL LYMPHOCYTE FLAG 0 (0-99); FRAGMENT RBC FLAG 0 (0-99); HEMATOCRIT 28.4 % (40.0-51.0); HEMOGLOBIN 8.9 g/dL (13.7-17.5); LEFT SHIFT FLG 20 (0-99); LIPEMIA HEMOLYSIS FLAG 80 (0-99); MEAN CELL HEMOGLOBIN 28.3 pg (27.9-34.1); MEAN CELL HEMOGLOBIN CONCENTR. 31.3 g/dL (32.4-36.7); MEAN CELL VOLUME 90.4 fL (81.5-99.8); PLATELET CLUMPS FLAG 10 (0-99); PLATELET COUNT 145 10^3/uL (150-400); RED BLOOD CELL COUNT 3.14 10^6/uL (4.40-6.38); RED CELL DISTRIBUTION WIDTH 15.6 % (11.5-15.2)
[2016-11-18 05:22] LABS: ANION GAP 11 mEq/L (8-16); CARBON DIOXIDE 18 mEq/l (22-31); CHLORIDE 117 mEq/L (97-110); GLOMERULAR FILTRATION RATE > 60; GLUCOSE 122 mg/dL (70-100); SODIUM 146 mEq/L (134-144)
[2016-11-18] MEDS: LEVOTHYROXINE 137 MCG TAB PO SCH (06:28)
[2016-11-18] MEDS: HYDROCORTISONE 100 MG/2 ML VIAL IVP SCH ×3 (06:29→21:23)
[2016-11-18] MEDS: ENOXAPARIN 40 MG/0.4 ML SYR SC SCH (08:15)
--- NOTE | 2016-11-18 11:25 | PDINTPN ---
[facility] Director Progress Note Assessment/Plan: Assessment/plan: 61 M with complex bladder cancer history including neobladder formation, ureteral stents and removal, percutaneous nephrostomy tube placement and exchange for nephroureteral tubes; complicated by development of chills and hypotension. He was admitted for urosepsis and treated with IVF, broad spectrum abx, and pressors. Blood and urine cultures grew sensitive Pseudomonas with rapid improvement in hemodynamics. * Septic shock- Continue to improve. Discussed case with ID who recommends eventual change to levaquin since max sensitive. Possible etiology is ureteral reflux given neobladder, but will defer to urology (at and left message). CT showed no abscess but inflammatory changes around GB so HIDA ordered. LFTs have been normal and denies abdominal pain- likely associated with multiple interventions on right flank. * Mobitz type II AV block (Wenckebach)- transient and apparently associated with levophed. Now in NSR with appropriate HR. Still a bit slow overnight (low of 49 recorded) but overall resolved. * Leukocytosis- possibly related to hydrocortisone since all other infectious parameters look better * Adrenal insufficiency- remains on high dose hydrocortisone- may be able to begin titration back to baseline. Subjective: no events overnight and feels well Objective: Vital Signs Temp Pulse Resp BP Pulse Ox 37.1 C 70 12 111/60 93 11/18/16 00:00 11/18/16 08:00 11/18/16 04:00 11/18/16 08:00 11/18/16 04:00 Laboratory Results 11/18/16 04:35 11/18/16 04:35 11/17/16 11/18/16 11/19/16 05:59 05:59 05:59 Intake Total 2830 4821 Output Total 2295 1700 Balance 535 3121 Physical Exam - Physical Exam General Appearance: WD/WN, alert, no apparent distress EENT: PERRL/EOMI Neck: supple Respiratory: lungs clear, normal breath sounds, No respiratory distress Cardiac/Chest: regular rate, rhythm, No edema Abdomen: non-tender, soft, No distended Skin: normal color, warm/dry Lymphatic: no adenopathy Extremities: No pedal edema Neuro/Psych: alert, normal mood/affect, oriented x 3 ICD10 Worksheet Patient Problems: Problems Problem Status Onset Pyelonephritis Acute Severe sepsis Acute Agitation Acute Hyponatremia Acute Low hemoglobin and low hematocrit Acute Nausea and vomiting Acute
--- NOTE | 2016-11-18 11:25 | GCON ---
[f rep st] CONSULTATION DATE OF CONSULTATION: 11/17/2016 REFERRING PHYSICIAN: Dr. Peñaloza REASON FOR CONSULTATION: Complicated urologic history. HISTORY OF PRESENT ILLNESS: I am asked to see this 61-year-old male who has a history of bladder can cer status post cystoprostatectomy with creation of neobladder in July of 2016 at the [facility]. His postop course was significant for an admission with urosepsis. Subsequently w as found to have an obstructed right ureter and a nephrostomy tube was placed. Last week, stent was internalized and the nephrostomy tube capped. The patient developed fairly severe right flank pain a nd the nephrostomy tube was uncapped, which relieved his pain. However, he then became quite ill wit h spiking high fevers, shaking chills. He came to the [facility] where he was admitted with presumed se psis. His blood cultures and urine cultures have subsequently grown Pseudomonas, but his condition h as stabilized with the initiation of antibiotics. A CT scan was obtained today and I am asked to nell e recommendations regarding ongoing management of his urologic concerns. The patient states that prior to the internalization of the stent, he had been having more difficulti es emptying his neobladder. His stream was decreasing and he was having flank pain, even with a neph rostomy tube in place on the right side. However, since starting antibiotics in the hospital he is h aving no difficulties initiating urinary stream and he feels that he is emptying almost completely wi th minimal Valsalva. He has had no further flank pain. Patient's past medical history is as above. His home medicines and other past history are well revie wed in the chart. A CT scan of the abdomen and pelvis performed earlier today showed a fairly empty neobladder. A smal l amount of debris was noted. A right ureteral stent was in good position as was a right nephrostomy tube. IMPRESSION: History of bladder cancer status post radical cystoprostatectomy with creation of a neob ladder. Complicated by right ureteral obstruction and now complicated by Pseudomonas bacteremia. RECOMMENDATION: The patient is progressing quite well. All tubes appear to be in good position and he is having no urinary problems including hematuria at this point. I will contact Dr. Wick at [facility] for her recommendations regarding management of his ureteral stent and nephrostomy t ube. At this point, the patient appears to be emptying his neobladder and is clinically improving and no f urther urologic intervention is indicated at the present time. /[id number]/MODL
--- NOTE | 2016-11-18 11:26 | SOAPPROG ---
SOAP Progress Note Assessment/Plan: Assessment/ pLAN: This is a 61 yr old with urosepsis and bacteremia who had Wenkebach. He is recovering well from his infection. No further heart block. Sinus bradycardia ntoed which is asymptomatic. BP is elevated post procedure. Will recheck and if it continues to be high, consider Amlodipine. Call with questions 11/18/16 11:23 Subjective: Pt doing well. No lightheadedness, dizziness, presyncope or syncope. Recovering well from the infection Objective: Vital Signs Temp Pulse Resp BP Pulse Ox 37.1 C 70 12 111/60 93 11/18/16 00:00 11/18/16 08:00 11/18/16 04:00 11/18/16 08:00 11/18/16 04:00 Laboratory Results 11/18/16 04:35 11/18/16 04:35 11/17/16 11/18/16 11/19/16 05:59 05:59 05:59 Intake Total 2830 4821 Output Total 2295 1700 Balance 535 3121 Physical Exam - Physical Exam General Appearance: alert, no apparent distress EENT: PERRL/EOMI, normal ENT inspection Neck: non-tender, full range of motion Respiratory: chest non-tender, lungs clear, No crackles, No rales Cardiac/Chest: regular rate, rhythm, No edema, No gallop Abdomen: normal bowel sounds, non-tender, soft Skin: normal color, warm/dry ICD10 Worksheet Patient Problems: Problems Problem Status Onset Pyelonephritis Acute Severe sepsis Acute Agitation Acute Hyponatremia Acute Low hemoglobin and low hematocrit Acute Nausea and vomiting Acute
--- NOTE | 2016-11-18 12:45 | HOSPPROG ---
Hospitalist Progress Note Assessment/Plan: # septic shock - source is urinary and bacteremia - off pressors # pseudomonas bacteremia - cont cefepime, appreciate ID consult # UTI/pyelo in setting of neobladder, ureteral stents, R perc neph - had staph epi bacteremia 1 month ago - urology involved - will d/w urology at regarding management of his stents and perc neph tube # abnormal GB imaging - HIDA today; doubt this is cholecystitis - gen surg consulting # central AI - stress dose steroids - wean today # heart block - Tommynckebach per cards - no treatment necessary # MIRTA - resolved # bladder cancer s/p neobladder, chemo; recent diagnosis; treated at # lymphoma, mantle cell - watching without treatment currently # gerd # hypothyroid - synthroid Subjective: feels "great" Objective: Vital Signs Temp Pulse Resp BP Pulse Ox 37.1 C 68 16 116/61 99 11/18/16 00:00 11/18/16 11:33 11/18/16 11:33 11/18/16 11:33 11/18/16 11:33 Laboratory Results 11/18/16 04:35 11/18/16 04:35 11/17/16 11/18/16 11/19/16 05:59 05:59 05:59 Intake Total 2830 4821 Output Total 2295 1700 Balance 535 3121 - Physical Exam Constitutional: no apparent distress, appears nourished Cardiovascular: no murmur, rub, or gallop, bradycardia, No irregularly irregular Respiratory: no respiratory distress, no rales or rhonchi, clear to auscultation Gastrointestinal: normoactive bowel sounds, soft, non-tender abdomen ICD10 Worksheet Patient Problems: Problems Problem Status Onset Hyponatremia Acute Nausea and vomiting Acute Low hemoglobin and low hematocrit Acute Agitation Acute Severe sepsis Acute Pyelonephritis Acute
--- NOTE | 2016-11-18 13:42 | PCMIDPN ---
Assessment/Plan: 1. Pseudomonal sepsis secondary to urinary source in this patient with complicated genitourinary anatomy/ history of cystectomy and neobladder construction in July: Appreciate Urology input. Continue cefepime, with plans to transition to oral fluoroquinolone (levofloxacin 750 mg daily) upon discharge. Hopefully he can be discharged either tomorrow afternoon or Sunday, but this will be contingent on his ongoing clinical improvement, and transition back to oral hydrocortisone. Repeat blood cultures are pending. Patient understands he will need to see Dr. Wick in short order next week, and that for any future manipulation of his ureteral stents, would recommend moris procedural antibiotics to prevent sepsis. 2. Gallbladder thickening on CT and ultrasound: HIDA scan negative. Liver function tests are within normal limits and patient without symptoms suggestive of active cholecystitis. No action necessary. Subjective: In excellent spirits. Wondering when he can go home. Objective: Cefepime 2 g IV q.8 hours day 2 T-max 37.1degrees Vital Signs Temp Pulse Resp BP Pulse Ox 37.1 C 68 16 116/61 99 11/18/16 00:00 11/18/16 11:33 11/18/16 11:33 11/18/16 11:33 11/18/16 11:33 Laboratory Results 11/18/16 04:35 11/18/16 04:35 11/17/16 11/18/16 11/19/16 05:59 05:59 05:59 Intake Total 2830 4821 Output Total 2295 1700 Balance 535 3121 Repeat blood cultures pending Urine culture with Pseudomonas as well as Citrobacter, Citrobacter sensitivities pending - Physical Exam General Appearance: alert, no apparent distress EENT: pharynx normal, No scleral icterus Respiratory: lungs clear Cardiac/Chest: regular rate, rhythm, other (Port right chest looks fine) Extremities: other (PICC line left upper extremity without erythema, tenderness or arm swelling) Abdomen: non-tender, soft Back: other (Right percutaneous nephrostomy tube looks fine.) Skin: No rash ICD10 Worksheet Patient Problems: Problems Problem Status Onset Pyelonephritis Acute Severe sepsis Acute Agitation Acute Hyponatremia Acute Low hemoglobin and low hematocrit Acute Nausea and vomiting Acute
--- NOTE | 2016-11-18 14:40 | SOAPPROG ---
JAYSON Progress Note Assessment/Plan: Assessment/Plan: - 61yo M c pseudomonas sepsis - was asked to follow patient after initial consultation. Reviewed his imaging as well as his HIDA this AM. Given his lack of abd pain and any classical findings of cholecystitis in conjunction with his normal HIDA I have low suspicion for acaculous cholecystitis. I feel that his edema noted on prior imaging c/w his septic picture. I dont think he would benefit from cholecystectomy at this time. Please call with questions or if clinic picture worsens. 11/18/16 14:38 Subjective: Denies abd pain Objective: Vital Signs Temp Pulse Resp BP Pulse Ox 37.1 C 68 16 116/61 99 11/18/16 00:00 11/18/16 11:33 11/18/16 11:33 11/18/16 11:33 11/18/16 11:33 Laboratory Results 11/18/16 04:35 11/18/16 04:35 11/17/16 11/18/16 11/19/16 05:59 05:59 05:59 Intake Total 2830 4882 Output Total 2295 1700 400 Balance 535 3121 -400 ICD10 Worksheet Patient Problems: Problems Problem Status Onset Pyelonephritis Acute Severe sepsis Acute Agitation Acute Hyponatremia Acute Low hemoglobin and low hematocrit Acute Nausea and vomiting Acute
[2016-11-19] MEDS ORDERED: CALCIUM CARBONATE 500 MG CHEWABLE TAB PO PRN (00:26)
[2016-11-19] MEDS: CEFEPIME HCL 2 GM in D5W 100 ML IV SCH ×2 (00:53→09:19)
[2016-11-19 04:40] LABS: % IMMATURE GRANULYOCYTES 0.6 % (0.0-1.1); ABSOLUTE IMMATURE GRANULOCYTES 0.07 10^3/uL (0.00-0.10); ADD DIFF? NO; ADD MORPH? NO; ADD SCAN? NO; ATYPICAL LYMPHOCYTE FLAG 10 (0-99); FRAGMENT RBC FLAG 0 (0-99); HEMATOCRIT 25.6 % (40.0-51.0); HEMOGLOBIN 8.1 g/dL (13.7-17.5); LEFT SHIFT FLG 10 (0-99); LIPEMIA HEMOLYSIS FLAG 80 (0-99); MEAN CELL HEMOGLOBIN 28.4 pg (27.9-34.1); MEAN CELL HEMOGLOBIN CONCENTR. 31.6 g/dL (32.4-36.7); MEAN CELL VOLUME 89.8 fL (81.5-99.8); MEAN PLATELET VOLUME 10.2 fL (8.7-11.7); PLATELET CLUMPS FLAG 0 (0-99); PLATELET COUNT 133 10^3/uL (150-400); RED BLOOD CELL COUNT 2.85 10^6/uL (4.40-6.38); RED CELL DISTRIBUTION WIDTH 15.9 % (11.5-15.2)
[2016-11-19 05:16] LABS: ALANINE AMINOTRANSFERASE 39 IU/L (21-72); ALBUMIN 2.7 g/dL (3.5-5.0); ALKALINE PHOSPHATASE 54 IU/L (38-126); ANION GAP 7 mEq/L (8-16); ASPARTATE AMINOTRANSFERASE 20 IU/L (17-59); BILIRUBIN,TOTAL 0.2 mg/dL (0.1-1.4); CALCIUM 8.8 mg/dL (8.5-10.4); CARBON DIOXIDE 20 mEq/l (22-31); CHLORIDE 118 mEq/L (97-110); GLOMERULAR FILTRATION RATE > 60; GLUCOSE 105 mg/dL (70-100); POTASSIUM 3.6 mEq/L (3.5-5.2); SODIUM 145 mEq/L (134-144); TOTAL PROTEIN 6.1 g/dL (6.3-8.2)
[2016-11-19] MEDS: LEVOTHYROXINE 137 MCG TAB PO SCH (06:35)
[2016-11-19] MEDS: HYDROCORTISONE 100 MG/2 ML VIAL IVP SCH (06:35)
[2016-11-19] MEDS ORDERED: TESTOSTERONE IM 100 MG/ML SYRINGE IM SCH (09:00)
[2016-11-19] MEDS: ENOXAPARIN 40 MG/0.4 ML SYR SC SCH (09:18)
[2016-11-19] MEDS: HYDROCORTISONE 10 MG TAB PO SCH ×3 (09:18→16:11)
--- NOTE | 2016-11-19 12:28 | PCMIDPN ---
Assessment/Plan: 1. Pseudomonal sepsis secondary to urinary source in this patient with complicated genitourinary anatomy/ history of cystectomy and neobladder construction in July: Patient will likely go home tomorrow, once he is stable on oral hydrocortisone. Will discontinue cefepime and start oral levofloxacin 750 mg p.o. daily. He will need 14 days of therapy, stop date December 01. As per my previous notes, I have talked to the patient at length about the fact that he needs to see Dr. Wick, his urologist at the [facility], in short order (this week) . The patient expressed understanding. 2. Gallbladder thickening on CT and ultrasound: HIDA scan negative. Liver function tests are within normal limits and patient without symptoms suggestive of active cholecystitis. No action necessary. 3. History of adrenal insufficiency: Now back on oral hydrocortisone. 4. Bilateral inguinal adenopathy in patient with history of mantle cell lymphoma : Patient understands he needs to follow up with his oncologist, Dr. Bergeron. Patient states he has an appointment in the next week or so. Subjective: In good spirits. Anxious to go home. Noted increase in baseline inguinal adenopathy. No nausea vomiting or diarrhea. Objective: Cefepime 2 g IV q.8 hours day 3 Afebrile Vital Signs Temp Pulse Resp BP Pulse Ox 36.8 C 40 L 19 110/59 L 97 11/19/16 08:00 11/19/16 08:00 11/19/16 08:00 11/19/16 08:00 11/19/16 08:00 Laboratory Results 11/19/16 04:30 11/19/16 04:30 11/18/16 11/19/16 11/20/16 05:59 05:59 05:59 Intake Total 4821 3000 Output Total 1700 1400 Balance 3121 1600 Repeat blood culture November 17, negative Previous blood and urine cultures with Pseudomonas aeruginosa. Urine culture also with Citrobacter freundii--sensi's pending - Physical Exam General Appearance: alert, no apparent distress EENT: pharynx normal Cardiac/Chest: regular rate, rhythm Extremities: other (PICC line left upper extremity looks fine.) Abdomen: non-tender, soft Male Genitalia: other (Bilateral bulky inguinal adenopathy, nontender.) Back: other (Right percutaneous nephrostomy tube with clear urine in place.) Skin: No rash ICD10 Worksheet Patient Problems: Problems Problem Status Onset Pyelonephritis Acute Severe sepsis Acute Agitation Acute Hyponatremia Acute Low hemoglobin and low hematocrit Acute Nausea and vomiting Acute
--- NOTE | 2016-11-19 13:10 | HOSPPROG ---
Hospitalist Progress Note Assessment/Plan: # septic shock - source is urinary and bacteremia - off pressors # pseudomonas bacteremia - change to PO levaquin today from cefepime # UTI/pyelo in setting of neobladder, ureteral stents, R perc neph - had staph epi bacteremia 1 month ago - he will f/u in less than [address] Wick at # abnormal GB imaging - HIDA negative - no further w/u # central AI - s/p stress dose steroids, now on PO hydrocortisone # heart block - Wenckebach per cards - no treatment necessary # MIRTA - resolved # bladder cancer s/p neobladder, chemo; recent diagnosis; treated at # lymphoma, mantle cell - will f/u outpatient onc # gerd # hypothyroid - synthroid # dispo - tomorrow if he tolerates home dose steroids and levaquin Subjective: wants to go home; says he feels great Objective: Vital Signs Temp Pulse Resp BP Pulse Ox 36.8 C 40 L 19 110/59 L 97 11/19/16 08:00 11/19/16 08:00 11/19/16 08:00 11/19/16 08:00 11/19/16 08:00 Laboratory Results 11/19/16 04:30 11/19/16 04:30 11/18/16 11/19/16 11/20/16 05:59 05:59 05:59 Intake Total 4821 3000 Output Total 1700 1400 Balance [address] Geraldo MENA reviewed - Physical Exam Constitutional: no apparent distress, appears nourished Cardiovascular: regular rate and rhythym, no murmur, rub, or gallop Respiratory: no respiratory distress, no rales or rhonchi, clear to auscultation Gastrointestinal: normoactive bowel sounds, soft, non-tender abdomen, no palpable masses ICD10 Worksheet Patient Problems: Problems Problem Status Onset Hyponatremia Acute Nausea and vomiting Acute Low hemoglobin and low hematocrit Acute Agitation Acute Severe sepsis Acute Pyelonephritis Acute
[2016-11-19] MEDS ORDERED: NS 1,000 ML IV ONE (19:24)
[2016-11-20 04:13] VITALS: TEMP 98.5
[2016-11-20 04:25] LABS: % IMMATURE GRANULYOCYTES 0.6 % (0.0-1.1); ABSOLUTE IMMATURE GRANULOCYTES 0.05 10^3/uL (0.00-0.10); ADD DIFF? NO; ADD MORPH? NO; ADD SCAN? NO; ATYPICAL LYMPHOCYTE FLAG 20 (0-99); FRAGMENT RBC FLAG 0 (0-99); HEMATOCRIT 26.7 % (40.0-51.0); HEMOGLOBIN 8.4 g/dL (13.7-17.5); LEFT SHIFT FLG 0 (0-99); LIPEMIA HEMOLYSIS FLAG 80 (0-99); MEAN CELL HEMOGLOBIN 28.1 pg (27.9-34.1); MEAN CELL HEMOGLOBIN CONCENTR. 31.5 g/dL (32.4-36.7); MEAN CELL VOLUME 89.3 fL (81.5-99.8); MEAN PLATELET VOLUME 10.1 fL (8.7-11.7); PLATELET CLUMPS FLAG 10 (0-99); PLATELET COUNT 149 10^3/uL (150-400); RED BLOOD CELL COUNT 2.99 10^6/uL (4.40-6.38); RED CELL DISTRIBUTION WIDTH 15.9 % (11.5-15.2)
[2016-11-20 04:40] LABS: ANION GAP 6 mEq/L (8-16); CALCIUM 8.6 mg/dL (8.5-10.4); CARBON DIOXIDE 21 mEq/l (22-31); CHLORIDE 116 mEq/L (97-110); CREATININE 1.1 mg/dL (0.7-1.3); GLOMERULAR FILTRATION RATE > 60; GLUCOSE 74 mg/dL (70-100); POTASSIUM 3.4 mEq/L (3.5-5.2); SODIUM 143 mEq/L (134-144)
[2016-11-20] MEDS: LEVOTHYROXINE 137 MCG TAB PO SCH (06:56)
[2016-11-20 07:44] VITALS: BP 128/62; PULSE 49; RESP 16; O2SAT 98
[2016-11-20] MEDS: CEFEPIME HCL 2 GM in D5W 100 ML IV SCH (08:01)
[2016-11-20] MEDS: HYDROCORTISONE 10 MG TAB PO SCH (08:02)
[2016-11-20] MEDS: ENOXAPARIN 40 MG/0.4 ML SYR SC SCH (09:47)
--- NOTE | 2016-11-20 11:01 | PDDCSUM ---
Discharge Summary Discharge Summary: Dates of service 11/16-11/20/16 Consultations: ID, Pulmonary, urology, general surgery Procedures performed: abd US x 2, PICC placement, echocardiogram, HIDA, abd ct Hospital course by problem: # septic shock - source is urinary and bacteremia - off pressors # pseudomonas bacteremia - change to PO levaquin today from cefepime # UTI/pyelo in setting of neobladder, ureteral stents, R perc neph - had staph epi bacteremia 1 month ago - he will f/u in less than [address] Wick at # abnormal GB imaging - HIDA negative - no further w/u # central AI - s/p stress dose steroids, now on PO hydrocortisone # heart block - Wenckebach per cards - no treatment necessary # MIRTA - resolved # bladder cancer s/p neobladder, chemo; recent diagnosis; treated at # lymphoma, mantle cell - will f/u outpatient onc # gerd # hypothyroid - synthroid # dispo - home f/u with PCP, urology usual f/u with oncology > 35 min spent in dc of patient more than half in coordination of care
--- NOTE | 2016-11-20 16:03 | ASDISCHSUM ---
Discharge Information Plan Status:Home with No Needs Medically Cleared to Leave:11/20/2016 Discharge Date:11/20/2016 11:54 AM CM D/C Disposition:Home, Routine, Self-Care ADT D/C Disposition:Home, Routine, Self-Care Projected Discharge Date:11/20/2016 12:00 AM Transportation at D/C:Family Discharge Delay Reason: Follow-Up Date:11/20/2016 12:00 AM Discharge Slot: Final Diagnosis:Sepsis, pyelonphritis Placement Information Patient Contact Information Contact Name:AFSHAN Relationship: Address:[address] City:[place] Alternate Phone: [facility] Code:[place] [address] Email: Financial Information Financial Class:HMO and PPO Plans Primary Plan Desc:TISHA SHEIKH PPO HMO Primary Plan Number:[id number] Secondary Plan Desc: Secondary Plan Number: Assessment Information [facility] CM Progress Note CM Note CM Note Notes: Patient admitted with septic shock from likely urinary source. Patient has a urologic history including recent neobladder formation and uretal stents placed at [facility]. Lives independently with . No therapy evals have been ordered, anticipate discharge home when medically stable. CM available if needs change. Date Signed: 11/16/2016 01:51 PM Electronically Signed By:Yamilet Gould RN [facility] CM Progress Note CM Note CM Note Notes: Pt is currently on IV ABX, ID is following. Urology consult requested 2/2 his complicated urological situation. CM will continue to follow for any d/c needs. Date Signed: 11/17/2016 03:51 PM Electronically Signed By:CHRISTOS Hutchinson [facility] CM Progress Note CM Note CM Note Notes: Patient has been discharged. He will return home with his with no discharge needs. Date Signed: 11/20/2016 04:02 PM Electronically Signed By:Beatriz Drew LCSW Intervention Information
== END 2016-11-20 11:54 | disposition home or self-care (01) | DRG 871 ==
LOC: F2N 11-16 02:42
PROVIDERS: ADMIT Internal Medicine; ATTEND Internal Medicine
PROC: 02HV33Z Insertion of Infusion Device into Superior Vena Cava, Percutaneous Approach (ICD-10-PCS; principal; 2016-11-16)
DX: A41.52 Sepsis due to Pseudomonas (principal); R65.21 Severe sepsis with septic shock; N10 Acute pyelonephritis; I44.1 Atrioventricular block, second degree; T44.4X5A Adverse effect of predominantly alpha-adrenoreceptor agonists, initial encounter; C83.10 Mantle cell lymphoma, unspecified site; E27.40 Unspecified adrenocortical insufficiency; E06.3 Autoimmune thyroiditis; K82.9 Disease of gallbladder, unspecified; R59.0 Localized enlarged lymph nodes; K21.9 Gastro-esophageal reflux disease without esophagitis; Z90.5 Acquired absence of kidney; Z87.891 Personal history of nicotine dependence; Z96.0 Presence of urogenital implants; Z85.51 Personal history of malignant neoplasm of bladder
CPT/HCPCS: 82947-QW; 96365; A9537; C1751; J0461; J0692; J0696; J1071; J1642; J1644; J1650; J2405; J2543; J3370; Q9967

== ENCOUNTER 2016-12-18 17:59 | Emergency (ER) | payer OTHER ==
--- NOTE | 2016-12-18 18:32 | EDPHY ---
H & P Stated Complaint: pt has a nephostomy tube and is now having pain. having drainage Time Seen by Provider: 12/18/16 18:14 HPI/ROS: CHIEF COMPLAINT: Mild incisional pain at area of nephrostomy HISTORY OF PRESENT ILLNESS: The patient is a complicated past medical history. He has a history of bladder cancer treated with resection and neobladder creation in July of 2016. The patient has had several admissions and transfers to the [facility] for sepsis and problems related to renal failure. The patient's last hospitalization was at the end of October where he developed bacteremia which required treatment of IV antibiotics. The patient recovered from that infection without complication. He followed up with his regular urologist at the [facility] who did change his stent on Sunday of last week. The patient clamp the stent on Sunday. He has been urinating with a normal volume. The patient's has been doing dressing changes of his nephrostomy tube. Over the past day the patient developed very mild pain primarily around the skin at the insertion of the nephrostomy tube. He denies a sensation of flank pain that he is have with his prior history of pyelonephritis and stent malfunction. The patient denies vomiting. He rates his pain as a 1/10. He has not had a fever. REVIEW OF SYSTEMS: A comprehensive 10 point review of systems is otherwise negative aside from elements mentioned in the history of present illness. Source: Patient Exam Limitations: No limitations - Personal History Current Tetanus/Diphtheria Vaccine: No Current Tetanus Diphtheria and Acellular Pertussis (TDAP): No - Medical/Surgical History Hx Asthma: No Hx Chronic Respiratory Disease: No Hx Diabetes: No Hx Cardiac Disease: No Hx Renal Disease: No Hx Cirrhosis: No Hx Alcoholism: No Hx HIV/AIDS: No Hx Splenectomy or Spleen Trauma: No Other PMH: Rosemary's hypothyroidism, oral surgery, neck issues, adrenal insufficiency, bladder ca, mantle cell lymphoma, bladder removed - surg to create bladder from intestine - Social History Smoking Status: Former smoker - Physical Exam Exam: General Appearance: Alert, no distress Eyes: Pupils equal and round no pallor or injection ENT, Mouth: Mucous membranes moist Respiratory: There are no retractions, lungs are clear to auscultation Cardiovascular: Regular rate and rhythm Gastrointestinal: Abdomen is soft and nontender, no masses, bowel sounds normal Neurological: A&O, normal motor function, normal sensory exam, normal cranial nerves Skin: Skin surrounding the nephrostomy is without erythema, exudate or evidence of leaking urine Musculoskeletal: Neck is supple nontender Extremities: symmetrical, full range of motion Constitutional: Initial Vital Signs Temperature (C) 36.8 C 12/18/16 18:07 Heart Rate 80 12/18/16 18:07 Respiratory Rate 18 12/18/16 18:07 Blood Pressure 119/70 12/18/16 18:07 O2 Sat (%) 96 12/18/16 18:07 O2 Delivery Mode Room Air Allergies/Adverse Reactions: amoxicillin Allergy (Mild, Verified 12/18/16 18:11) ? n/v Home Medications: Medication Instructions Recorded Acetaminophen [Tylenol ES 500 mg 1,000 mg PO DAILY PRN 10/25/15 (*)] Levothyroxine Sodium 137 mcg PO DAILY@06 10/25/15 Hydrocortisone [Cortef 10 mg (*)] 5 mg PO DAILY@14 #0 tab 10/26/15 Testosterone IM [Testosterone 0.3 ml IM BLAND 09/11/16 100mg/ml IM inj (*)] Hydrocortisone [Cortef 10 mg (*)] 15 mg PO DAILY 11/16/16 Multivitamins [Multivitamin (*)] 1 each PO DAILY 11/16/16 Calcium Carbonate [Tums 500MG (*)] 500 mg PO TID PRN tab.chew 11/20/16 Medical Decision Making ED Course/Re-evaluation: The patient presents to the ED with pain that appears to originate from the area of his stitches holding his nephrostomy tube. He has no CVA tenderness. He has no fever. I reviewed the patient's extensive past medical records including his prior ED visits and recent hospitalization, Urology consultation and discharge summary. The patient did receive a small injection of bupivacaine below his stitches away from the direction of his nephrostomy tube. I re-evaluated the patient at 7:45 p.m.. He is feeling better. He is in no acute distress. His creatinine is normal. At this point time he would like to go home. He is comfortable returning to the emergency department for the development of any worsening flank pain, fever, vomiting or other concerns. The patient will follow up with his urologist at the [facility] as scheduled next week. Differential Diagnosis: Differential diagnosis considered includes renal failure, pyelonephritis, sepsis , incisional pain - Data Points Laboratory Results: 12/18/16 19:17 POC Hgb 12.6 gm/dL L gm/dL (13.7-17.5) POC Hct 37 % L % (40-51) POC Sodium 143 mEq/L mEq/L (134-144) POC Potassium 4.1 mEq/L mEq/L (3.3-5.0) POC Chloride 109 mEq/L mEq/L (97-110) POC BUN 31 mg/dL H mg/dL (7-23) POC Creatinine 1.1 mg/dL mg/dL (0.7-1.3) POC Glucose 96 mg/dL mg/dL (70-100) Point of Care Test Results: 12/18/16 19:17 POC Sodium 143 POC Potassium 4.1 POC Chloride 109 POC BUN 31 H POC Creatinine 1.1 POC Glucose 96 Departure - Departure Disposition: Home, Routine, Self-Care Clinical Impression: Back pain Condition: Good Instructions: Flank Pain (ED) Additional Instructions: 1. Your blood test are reassuring without evidence of renal failure. 2. Please return to the ED for any worsening symptoms, fever, vomiting, increasing pain or other concerns. 3. Please follow up with your urologist as scheduled next week. Referrals: Tristan Cronin, [Primary Care Provider] - As per Instructions
[2016-12-18 18:37] VITALS: RESP 16
[2016-12-18 20:03] VITALS: BP 121/76; PULSE 65; TEMP 98.6; O2SAT 96
== END 2016-12-18 20:02 | disposition home or self-care (01) ==
DX: T83.84XA Pain due to genitourinary prosthetic devices, implants and grafts, initial encounter (principal); Z87.891 Personal history of nicotine dependence; Y82.8 Other medical devices associated with adverse incidents
CPT/HCPCS: 82947-QW; J1642

== ENCOUNTER 2017-08-22 00:21 | Observation (INO) | payer OTHER ==
[2017-08-22] MEDS ORDERED: NS 2,200 ML IV ONE (01:07)
[2017-08-22 01:19] LABS: PLATELET COUNT 210 10^3/uL (150-400)
[2017-08-22 01:27] LABS: INR 1.06 (0.83-1.16)
--- NOTE | 2017-08-22 01:39 | EDPHY ---
H & P Stated Complaint: Fever, back pain, hx sepsis, "R urter stent placed, maybe getting bacteria" Time Seen by Provider: 08/22/17 01:06 HPI/ROS: HPI The patient presents with fever and right-sided flank pain which began this afternoon. He initially developed progressive severe right back pain this afternoon which he treated with heat, ice, pain medication without any improvement. He then developed a fever. It was as high as 102.8 at midnight tonight after taking a dose of Tylenol at 11:00 p.m.. He does not have much dysuria though does report hematuria which he has intermittently. He has a history of bladder cancer with a neobladder in place for the last 1 year. He has a right ureteral stent in place which has been in place for about 5 months. He is followed by I urologic oncologist at [facility] Dr. Wick. He is not on chemotherapy currently. He does have a history of sepsis sent pyelonephritis. He does not have any nausea or vomiting.. REVIEW OF SYSTEMS Constitutional: No fever, no chills. Eyes: No discharge. ENT: No sore throat. Cardiovascular: No chest pain, no palpitations. Respiratory: No cough, no shortness of breath. Gastrointestinal: No abdominal pain, no vomiting. Genitourinary: No hematuria. Musculoskeletal: No back pain. Skin: No rashes. Neurological: No headache. PMHx: Bladder cancer with neobladder in place, right ureteral stent in place, status post chemotherapy, history of Jeter and mantle cell lymphoma as which are being monitored, history of adrenal insufficiency Soc Hx: Here with his , son getting this weekend PHYSICAL General Appearance: Alert, no distress Eyes: Pupils equal and round no pallor or injection ENT, Mouth: Mucous membranes moist Respiratory: There are no retractions, lungs are clear to auscultation Cardiovascular: Regular rate and rhythm Gastrointestinal: Abdomen is soft and non-tender, no masses, bowel sounds normal Back: There is no CVA tenderness or flank tenderness, there is no midline tenderness Neurological: A&O, moves all extremities Skin: Warm and dry, no rashes Musculoskeletal: Neck is supple non tender Extremities: symmetrical, full range of motion Psychiatric: Patient is oriented X 3, there is no agitation Source: Patient Exam Limitations: No limitations - Personal History Current Tetanus Diphtheria and Acellular Pertussis (TDAP): Yes - Medical/Surgical History Hx Asthma: No Hx Chronic Respiratory Disease: No Hx Diabetes: No Hx Cardiac Disease: No Hx Renal Disease: No Hx Cirrhosis: No Hx Alcoholism: No Hx HIV/AIDS: No Hx Splenectomy or Spleen Trauma: No Other PMH: Rosemary's hypothyroidism, oral surgery, neck issues, adrenal insufficiency, bladder ca, mantle cell lymphoma, bladder removed - surg to create bladder from intestine - Social History Smoking Status: Former smoker Constitutional: Initial Vital Signs Temperature (C) 37.8 C 08/22/17 00:28 Heart Rate 109 H 08/22/17 00:28 Respiratory Rate 18 08/22/17 00:28 Blood Pressure 100/79 08/22/17 00:28 O2 Sat (%) 92 08/22/17 00:28 O2 Delivery Mode Room Air Allergies/Adverse Reactions: amoxicillin Allergy (Mild, Verified 08/22/17 00:27) ? n/v Home Medications: Medication Instructions Recorded Acetaminophen [Tylenol ES 500 mg 1,000 mg PO DAILY PRN 10/25/15 (*)] Levothyroxine Sodium 137 mcg PO DAILY@06 10/25/15 Hydrocortisone [Cortef 10 mg (*)] 5 mg PO DAILY@14 #0 tab 10/26/15 Testosterone IM [Testosterone 0.3 ml IM BLAND 09/11/16 100mg/ml IM inj (*)] Hydrocortisone [Cortef 10 mg (*)] 15 mg PO DAILY 11/16/16 Multivitamins [Multivitamin (*)] 1 each PO DAILY 11/16/16 Calcium Carbonate [Tums 500MG (*)] 500 mg PO TID PRN tab.chew 11/20/16 Medical Decision Making - Diagnostics Imaging Results: Ultrasound renal demonstrates right-sided hydronephrosis with stent in place which is patent, discussed with the radiologist second baker. Imaging: I viewed and interpreted images myself Differential Diagnosis: 62-year-old male with history of bladder cancer with neobladder in place, right ureteral stent in place presents with right flank pain in association with fever as high as 102.8 for the last day. On exam, he is initially tachycardic, he has a low-grade fever, he is generally well-appearing with no CVA tenderness. Differential diagnosis includes pyelonephritis, possibly with obstruction, cholecystitis, less likely epidural abscess. In the emergency department, lactate was checked and was normal. CBC was relatively unremarkable. Chemistries revealed elevated BUN and creatinine. This could be related to dehydration verses infection. He was given IV fluids with improvement in his tachycardia. UA shows leukocyte esterase, white blood cells, red blood cells, trace bacteria. This is difficult to interpret given his neobladder. Ultrasound performed did show moderate hydronephrosis on the right. He had a CT scan on July 27 which shows moderate hydronephrosis as well. His stent is patent. Given his history of pyelonephritis, fever at home to 102.8 with flank pain, I feel he should be admitted for IV antibiotics. At this point, I do not think he needs to be transferred to [facility]. However if he was to not improve or deteriorate then transfer may be appropriate for urologic intervention by his primary treating urologist. I have discussed the case with the hospitalist second baker Dr. Washington and we will admit the patient. I have started ceftriaxone in the emergency department. - Data Points Laboratory Results: Laboratory Results 08/22/17 01:07 08/22/17 01:07 08/22/17 08/22/17 08/22/17 02:20 01:07 01:07 WBC RBC Hgb Hct MCV MCH MCHC RDW Plt Count MPV Neut % (Auto) Lymph % (Auto) [place] % (Auto) Eos % (Auto) Baso % (Auto) Nucleat RBC Rel Count Absolute Neuts (auto) Absolute Lymphs (auto) Absolute Monos (auto) Absolute Eos (auto) Absolute Basos (auto) Absolute Nucleated RBC Immature Gran % Immature Gran # PT INR APTT VBG Lactic Acid Sodium 138 mEq/L mEq/L (135-145) Potassium 4.0 mEq/L mEq/L (3.3-5.0) Chloride 112 mEq/L H mEq/L (97-110) Carbon Dioxide 22 mEq/l mEq/l (22-31) Anion Gap 4 mEq/L L mEq/L (8-16) BUN 33 mg/dL H mg/dL (7-23) Creatinine 1.7 mg/dL H mg/dL (0.7-1.3) Estimated GFR 41 Glucose 87 mg/dL mg/dL (70-100) Calcium 8.4 mg/dL L mg/dL (8.5-10.4) Total Bilirubin 0.6 mg/dL mg/dL (0.1-1.4) Conjugated Bilirubin 0.4 mg/dL mg/dL (0.0-0.5) Unconjugated Bilirubin 0.2 mg/dL mg/dL (0.0-1.1) AST 25 IU/L IU/L (17-59) ALT 31 IU/L IU/L (21-72) Alkaline Phosphatase 70 IU/L IU/L (38-126) Total Protein 7.5 g/dL g/dL (6.3-8.2) Albumin 3.8 g/dL g/dL (3.5-5.0) Urine Color YELLOW Urine Appearance HAZY Urine pH 6.0 (5.0-7.5) Ur Specific [place] 1.014 (1.002-1.030) Urine Protein NEGATIVE (NEGATIVE) Urine Ketones NEGATIVE (NEGATIVE) Urine Blood 2+ H (NEGATIVE) Urine Nitrate NEGATIVE (NEGATIVE) Urine Bilirubin NEGATIVE (NEGATIVE) Urine Urobilinogen NEGATIVE EU EU (0.2-1.0) Ur Leukocyte Esterase 3+ H (NEGATIVE) Urine RBC 25-50 /hpf H /hpf (0-3) Urine WBC 50-182 /hpf H /hpf (0-3) Ur Epithelial Cells TRACE /lpf /lpf (NONE-1+) Urine Bacteria TRACE /hpf H /hpf (NONE SEEN) Urine Mucus TRACE /lpf /lpf (NONE-1+) Urine Glucose NEGATIVE (NEGATIVE) 08/22/17 08/22/17 08/22/17 01:07 01:07 01:07 WBC 9.97 10^3/uL H 10^3/uL (3.80-9.50) RBC 4.01 10^6/uL L 10^6/uL (4.40-6.38) Hgb 12.3 g/dL L g/dL (13.7-17.5) Hct 37.1 % L % (40.0-51.0) MCV 92.5 fL fL (81.5-99.8) MCH 30.7 pg pg (27.9-34.1) MCHC 33.2 g/dL g/dL (32.4-36.7) RDW 13.7 % % (11.5-15.2) Plt Count 210 10^3/uL 10^3/uL (150-400) MPV 9.2 fL fL (8.7-11.7) Neut % (Auto) 61.7 % % (39.3-74.2) Lymph % (Auto) 25.9 % % (15.0-45.0) [place] % (Auto) 11.8 % % (4.5-13.0) Eos % (Auto) 0.0 % L % (0.6-7.6) Baso % (Auto) 0.4 % % (0.3-1.7) Nucleat RBC Rel Count 0.0 % % (0.0-0.2) Absolute Neuts (auto) 6.15 10^3/uL 10^3/uL (1.70-6.50) Absolute Lymphs (auto) 2.58 10^3/uL 10^3/uL (1.00-3.00) Absolute Monos (auto) 1.18 10^3/uL H 10^3/uL (0.30-0.80) Absolute Eos (auto) 0.00 10^3/uL L 10^3/uL (0.03-0.40) Absolute Basos (auto) 0.04 10^3/uL 10^3/uL (0.02-0.10) Absolute Nucleated RBC 0.00 10^3/uL 10^3/uL (0-0.01) Immature Gran % 0.2 % % (0.0-1.1) Immature Gran # 0.02 10^3/uL 10^3/uL (0.00-0.10) PT 14.0 SEC SEC (12.0-15.0) INR 1.06 (0.83-1.16) APTT 35.2 SEC SEC (23.0-38.0) VBG Lactic Acid 0.6 mmol/L L mmol/L (0.7-2.1) Sodium Potassium Chloride Carbon Dioxide Anion Gap BUN Creatinine Estimated GFR Glucose Calcium Total Bilirubin Conjugated Bilirubin Unconjugated Bilirubin AST ALT Alkaline Phosphatase Total Protein Albumin Urine Color Urine Appearance Urine pH Ur Specific [place] Urine Protein Urine Ketones Urine Blood Urine Nitrate Urine Bilirubin Urine Urobilinogen Ur Leukocyte Esterase Urine RBC Urine WBC Ur Epithelial Cells Urine Bacteria Urine Mucus Urine Glucose Medications Given: Discontinued Medications Sodium Chloride (Ns) 2,200 mls @ 4,400 mls/hr 30 ml/kg infuse over 30 min ( 2200 ml) IV EDNOW ONE PRN Reason: Protocol Stop: 08/22/17 01:36 Last Admin: 08/22/17 01:34 Dose: 2,200 mls Ceftriaxone Sodium/Dextrose (Rocephin 1 Gm (Premix)) 50 mls @ 100 mls/hr IV EDNOW ONE PRN Reason: Protocol Stop: 08/22/17 03:31 Last Admin: 08/22/17 03:30 Dose: 50 mls Departure - Departure Disposition: [facility] Inpatient Acute Clinical Impression: Pyelonephritis Acute renal failure Qualifiers: Acute renal failure type: unspecified Qualified Code(s): N17.9 - Acute kidney failure, unspecified Bladder malignancy Qualifiers: Bladder location: unspecified site Qualified Code(s): C67.9 - Malignant neoplasm of bladder, unspecified Condition: Fair
[2017-08-22] MEDS ORDERED: ONDANSETRON DISINTEGRATING 4 MG TAB PO PRN (03:10)
[2017-08-22] MEDS ORDERED: ONDANSETRON 4 MG/2 ML VIAL IVP PRN (03:10)
[2017-08-22] MEDS ORDERED: ACETAMINOPHEN 325 MG TAB PO PRN (03:10)
--- NOTE | 2017-08-22 04:59 | PDGENHP ---
History and Physical - Chief Complaint Fever, flank pain - History of Present Illness 62 yo M w/ hx of bladder CA s/p neobladder and ureteral stent, mantle cell lymphoma, and adrenal insufficiency presents with fever and R flank pain. Patient felt fatigued today. He noticed some R flank pain before bed so he took an oxycodone and went to bed. Around 11 PM he woke up with a fever of 102 and shaking chills so he came in to the ED. He denies dysuria or frequency. He had a R ureteral stent placed around the time of his bladder resection and neobladder procedure. He tells me this was last changed in March of this year. At the time of my evaluation patient is comfortable, afebrile, with a HR in the 80s and hemodynamically stable. Case discussed with Ed physician Dr. Davila, previous records reviewed including D/C summary by Dr. Li dated 11/20/16 detailing admission for pyelonephritis and pseudomonas bacteremia. History Information - Allergies/Home Medication List Allergies/Adverse Reactions: amoxicillin Allergy (Mild, Verified 08/22/17 00:27) ? n/v Home Medications: Acetaminophen [Tylenol ES 500 mg (*)] 1,000 mg PO DAILY PRN 10/25/15 [Last Taken 10/24/15] Levothyroxine Sodium 137 mcg PO DAILY@06 10/25/15 [Last Taken 11/16/16] Testosterone IM [Testosterone 100mg/ml IM inj (*)] 0.3 ml IM BLAND 09/11/16 [Last Taken 11/12/16] Hydrocortisone [Cortef 10 mg (*)] 15 mg PO DAILY 11/16/16 [Last Taken 11/15/16] Multivitamins [Multivitamin (*)] 1 each PO DAILY 11/16/16 [Last Taken Unknown] I have personally reviewed and updated: family history, medical history - Past Medical History cancer (bladder cancer, lymphoma), GERD Additional medical history: secondary adrenal insufficiency. hypothyroid/ hashimotos - Surgical History Reports: cancer surgery (cystectomy and neobladder formation) Additional surgical history: bilateral nephroureteral stents. right perc neph tube. ankle surgery. LN biopsy - Family History Additional family history: Father with Graves disease/suicide. Brother liver cancer - Social History Smoking Status: Former smoker Additional social history: Review of Systems Review of Systems: ROS: 10pt was reviewed & negative except for what was stated in HPI & below Physical Exam Physical Exam: Temp Pulse Resp BP Pulse Ox 36.4 C 85 16 121/63 H 95 08/22/17 04:07 08/22/17 04:07 08/22/17 04:07 08/22/17 04:07 08/22/17 04:07 Constitutional: no apparent distress, not in pain Eyes: PERRL, EOMI Ears, Nose, Mouth, Throat: moist mucous membranes, no oral mucosal ulcers Cardiovascular: regular rate and rhythym, no murmur, rub, or gallop Respiratory: no respiratory distress, no rales or rhonchi Gastrointestinal: normoactive bowel sounds, soft, non-tender abdomen Skin: warm, normal color Musculoskeletal: full muscle strength, no muscle tenderness Neurologic: AAOx3, CN II-XII Intact Psychiatric: interacting appropriately, not anxious Lab Data & Imaging Review 08/22/17 01:07 08/22/17 01:07 WBC 9.97 10^3/uL (3.80-9.50) H 08/22/17 01:07 RBC 4.01 10^6/uL (4.40-6.38) L 08/22/17 01:07 Hgb 12.3 g/dL (13.7-17.5) L 08/22/17 01:07 Hct 37.1 % (40.0-51.0) L 08/22/17 01:07 MCV 92.5 fL (81.5-99.8) 08/22/17 01:07 MCH 30.7 pg (27.9-34.1) 08/22/17 01:07 MCHC 33.2 g/dL (32.4-36.7) 08/22/17 01:07 RDW 13.7 % (11.5-15.2) 08/22/17 01:07 Plt Count 210 10^3/uL (150-400) 08/22/17 01:07 MPV 9.2 fL (8.7-11.7) 08/22/17 01:07 Neut % (Auto) 61.7 % (39.3-74.2) 08/22/17 01:07 Lymph % (Auto) 25.9 % (15.0-45.0) 08/22/17 01:07 [place] % (Auto) 11.8 % (4.5-13.0) 08/22/17 01:07 Eos % (Auto) 0.0 % (0.6-7.6) L 08/22/17 01:07 Baso % (Auto) 0.4 % (0.3-1.7) 08/22/17 01:07 Nucleat RBC Rel Count 0.0 % (0.0-0.2) 08/22/17 01:07 Absolute Neuts (auto) 6.15 10^3/uL (1.70-6.50) 08/22/17 01:07 Absolute Lymphs (auto) 2.58 10^3/uL (1.00-3.00) 08/22/17 01:07 Absolute Monos (auto) 1.18 10^3/uL (0.30-0.80) H 08/22/17 01:07 Absolute Eos (auto) 0.00 10^3/uL (0.03-0.40) L 08/22/17 01:07 Absolute Basos (auto) 0.04 10^3/uL (0.02-0.10) 08/22/17 01:07 Absolute Nucleated RBC 0.00 10^3/uL (0-0.01) 08/22/17 01:07 Immature Gran % 0.2 % (0.0-1.1) 08/22/17 01:07 Immature Gran # 0.02 10^3/uL (0.00-0.10) 08/22/17 01:07 PT 14.0 SEC (12.0-15.0) 08/22/17 01:07 INR 1.06 (0.83-1.16) 08/22/17 01:07 APTT 35.2 SEC (23.0-38.0) 08/22/17 01:07 VBG Lactic Acid 0.6 mmol/L (0.7-2.1) L 08/22/17 01:07 Sodium 138 mEq/L (135-145) 08/22/17 01:07 Potassium 4.0 mEq/L (3.3-5.0) 08/22/17 01:07 Chloride 112 mEq/L (97-110) H 08/22/17 01:07 Carbon Dioxide 22 mEq/l (22-31) 08/22/17 01:07 Anion Gap 4 mEq/L (8-16) L 08/22/17 01:07 BUN 33 mg/dL (7-23) H 08/22/17 01:07 Creatinine 1.7 mg/dL (0.7-1.3) H 08/22/17 01:07 Estimated GFR 41 08/22/17 01:07 Glucose 87 mg/dL (70-100) 08/22/17 01:07 Calcium 8.4 mg/dL (8.5-10.4) L 08/22/17 01:07 Total Bilirubin 0.6 mg/dL (0.1-1.4) 08/22/17 01:07 Conjugated Bilirubin 0.4 mg/dL (0.0-0.5) 08/22/17 01:07 Unconjugated Bilirubin 0.2 mg/dL (0.0-1.1) 08/22/17 01:07 AST 25 IU/L (17-59) 08/22/17 01:07 ALT 31 IU/L (21-72) 08/22/17 01:07 Alkaline Phosphatase 70 IU/L (38-126) 08/22/17 01:07 Total Protein 7.5 g/dL (6.3-8.2) 08/22/17 01:07 Albumin 3.8 g/dL (3.5-5.0) 08/22/17 01:07 Urine Color YELLOW 08/22/17 02:20 Urine Appearance HAZY 08/22/17 02:20 Urine pH 6.0 (5.0-7.5) 08/22/17 02:20 Ur Specific [place] 1.014 (1.002-1.030) 08/22/17 02:20 Urine Protein NEGATIVE (NEGATIVE) 08/22/17 02:20 Urine Ketones NEGATIVE (NEGATIVE) 08/22/17 02:20 Urine Blood 2+ (NEGATIVE) H 08/22/17 02:20 Urine Nitrate NEGATIVE (NEGATIVE) 08/22/17 02:20 Urine Bilirubin NEGATIVE (NEGATIVE) 08/22/17 02:20 Urine Urobilinogen NEGATIVE EU (0.2-1.0) 08/22/17 02:20 Ur Leukocyte Esterase 3+ (NEGATIVE) H 07/04/18 02:20 Urine RBC 25-50 /hpf (0-3) H 08/22/17 02:20 Urine WBC 50-182 /hpf (0-3) H 08/22/17 02:20 Ur Epithelial Cells TRACE /lpf (NONE-1+) 08/22/17 02:20 Urine Bacteria TRACE /hpf (NONE SEEN) H 08/22/17 02:20 Urine Mucus TRACE /lpf (NONE-1+) 08/22/17 02:20 Urine Glucose NEGATIVE (NEGATIVE) 08/22/17 02:20 Imaging Review: Abd U/S prelim: 1. Moderate RT hydro. No perinephric fluid. 2. RT ureteral stent well positioned ( in pelvocaliceal system and neobladder) 3. Normal left kidney D/W Dr Davila at 2:45 am Assessment & Plan Assessment: 62 yo M w/ hx of bladder CA s/p neobladder and ureteral stent, mantle cell lymphoma, and adrenal insufficiency presents with likely pyelonephritis Plan: 1. Complicated UTI - Likely pyelonephritis noting R flank pain, fever, and grossly infectious UA. Patient has a R ureteral stent in place as well. He has been afebrile while here, technically 0/4 SIRS while on our watch. - Admit for observation - CTX 1 g qD for now; low threshold to add pseudomonal coverage if worsening due to history - Blood and urine cultures pending 2. R moderate hydronephrosis - Noted on abdominal U/S upon admission. CT scan dated 07/27 (available in [place]) shows similar level of hydronephrosis so this is likely chronic. - Monitor renal function, serum Cr currently above baseline - If renal function worsening, would consult urology 3. MIRTA - Serum Cr 1.7 on admission; this could be related to infection or less likely hydronephrosis (as this is likely chronic). - S/p fluid bolus - Monitor BMP - Will check FeNa 4. Hx of bladder CA - S/p neobladder formation, no longer on treatment for this. 5. Hx mantle cell lymphoma - Under observation only, no treatment as of yet. 6. Adrenal insufficiency - Will continue home dose hydrocortisone for now as patient is hemodynamically stable. - Low threshold for stress dose steroids if hypotensive or condition worsens Diet - Regular Code - Full Ppx - SCDs Dispo - Admit under observation status
[2017-08-22 06:27] LABS: PLATELET COUNT 206 10^3/uL (150-400)
--- NOTE | 2017-08-22 11:39 | HOSPPROG ---
Hospitalist Progress Note Assessment/Plan: # UTI in setting of neobladder, R ureteral stent - will change abx to cefepime given hx pseudomonal UTI - discussed with PHYSICIAN EXECUTIVE who works with Dr Wick at - he will send her this message # R hydro - chronic (records from reviewed from Mar), likely d/t reflux from ureteral stent # MIRTA - pre-renal, improving - cont IVF # hx bladder ca s/p neobladder - follows with Dr Wick at # hx mantle cell lymphoma - no current treatment, following # AI - cont steroids, does not appear to need stress dose at this point Subjective: still with abdominal cramping; no fevers Objective: Vital Signs Temp Pulse Resp BP Pulse Ox 36.9 C 82 14 111/61 94 08/22/17 08:00 08/22/17 08:00 08/22/17 08:00 08/22/17 08:00 08/22/17 08:00 Laboratory Results 08/22/17 05:45 08/22/17 05:45 08/21/17 08/22/17 08/23/17 05:59 05:59 05:59 Intake Total 2351 Balance 2351 PT 14.0 SEC (12.0-15.0) 08/22/17 01:07 INR 1.06 (0.83-1.16) 08/22/17 01:07 30 mins of direct face to face patient care time fro 11:00-11:30 - Physical Exam Constitutional: no apparent distress, appears nourished Cardiovascular: regular rate and rhythym, no murmur, rub, or gallop Respiratory: no respiratory distress, no rales or rhonchi, clear to auscultation Gastrointestinal: normoactive bowel sounds, soft, non-tender abdomen, no palpable masses ICD10 Worksheet Patient Problems: Problems Problem Status Onset Hyponatremia Acute Nausea and vomiting Acute Low hemoglobin and low hematocrit Acute Agitation Acute Severe sepsis Acute Pyelonephritis Acute Acute renal failure Acute Bladder malignancy Acute
[2017-08-22] MEDS ORDERED: NS 1,000 ML IV ONE (11:42)
[2017-08-22] MEDS ORDERED: ACETAMINOPHEN 500 MG TAB PO PRN (11:43)
[2017-08-22] MEDS: HYDROCORTISONE 10 MG TAB PO SCH (12:18)
[2017-08-22] MEDS: CEFEPIME HCL 2 GM in NS 100 ML IV SCH ×2 (12:18→21:32)
[2017-08-22] MEDS: LEVOTHYROXINE 137 MCG TAB PO SCH (12:32)
[2017-08-22] MEDS ORDERED: HYDROCORTISONE 10 MG TAB PO SCH (15:00)
--- NOTE | 2017-08-22 16:40 | ASMTCMCOM ---
CM Note CM Note Notes: Reviewed chart, anticipate pt will dc home w/support of when medically stable. CM available for any changes. DC Plan: Independent Date Signed: 08/22/2017 04:15 PM Electronically Signed By:Jolanta Wylie RN
[2017-08-23] MEDS: LEVOTHYROXINE 137 MCG TAB PO SCH (05:52)
[2017-08-23 06:03] LABS: PLATELET COUNT 209 10^3/uL (150-400)
[2017-08-23 08:24] VITALS: BP 112/71
[2017-08-23] MEDS ORDERED: MULTIVITAMINS 1 EACH TAB PO SCH (09:00)
[2017-08-23] MEDS: CEFEPIME HCL 2 GM in NS 100 ML IV SCH (09:17)
[2017-08-23] MEDS: HYDROCORTISONE 10 MG TAB PO SCH (09:18)
--- NOTE | 2017-08-23 11:14 | GDS ---
[f rep st] DISCHARGE SUMMARY FINAL DIAGNOSES: 1. Urinary tract infection. 2. History of bladder cancer, status post neobladder placement. 3. Chronic right-sided hydronephrosis with internalized nephrostomy tube in place. 4. History of adrenal insufficiency. 5. Acute kidney injury. 6. History of mantle cell lymphoma. HOSPITAL COURSE: This is a 62-year-old man with history of bladder cancer, status post neobladder pl acement. He presented with fever at home, as well as change in his urinary habits. He also describe d some abdominal pain. He has a history of a right-sided internalized nephrostomy tube. He is follo wed by Dr. Winifred Wick at the [facility] for this. He also has a history of a pseudomonal urinary tract infection. He was placed on antibiotics, initially Rocephin, changed to cefepime. He has had significant improvement in his symptoms with antibiotics. He is feeling back to normal, ambulating, has no abdominal discomfort anymore or difficulty urinating. Blood cultures and urine cultures have been no growth to date. He is stable and anxious for discharge at this point. I will place him on p.o. Levaquin, with a prolonged course given the nephrostomy tube. He will get a total of 2 weeks of antibiotic therapy. I have recommended he see Dr. Wick prior to completing his antibiotic course, given the nephrostomy tube. He is due to have that changed this September, but I think it should be ch anged sooner at this point. He had been seen by Urology on a previous admission, who recommended no intervention here given the complicated anatomy and following up with Dr. Wick. I called Dr. Temitope ohlly's Urology service, requested a call back if feasible from her. I have not yet heard back. FOLLOWUP: Dr. Winifred Wick at [facility] for ongoing management of his neobladder and nephrost bhavin tube. Copy requested to: Dr Winifred Wick [facility] /[id number]/MODL
--- NOTE | 2017-08-23 14:52 | ASDISCHSUM ---
Discharge Information Plan Status:Home with No Needs Medically Cleared to Leave:08/23/2017 Discharge Date:08/23/2017 11:55 AM CM D/C Disposition:Home, Routine, Self-Care ADT D/C Disposition:Home, Routine, Self-Care Projected Discharge Date:08/23/2017 11:55 AM Transportation at D/C:Family Discharge Delay Reason: Follow-Up Date:08/23/2017 11:55 AM Discharge Slot: Final Diagnosis: Placement Information Patient Contact Information Contact Name:AFSHAN Relationship: Address:[address] City:[place] Alternate Phone: [facility]/Zip Code:[place] [address] Email: Financial Information Financial Class:HMO and PPO Plans Primary Plan Desc:[facility] P[facility] HMO Primary Plan Number:[id number] Secondary Plan Desc: Secondary Plan Number: Assessment Information [facility] CM Progress Note CM Note CM Note Notes: Reviewed chart, anticipate pt will dc home w/support of when medically stable. CM available for any changes. DC Plan: Independent Date Signed: 08/22/2017 04:15 PM Electronically Signed By:Jolanta Wylie RN Intervention Information
--- NOTE | 2017-08-23 14:53 | ASMTCMCOM ---
CM Note CM Note Notes: Medically cleared for dc to home. No needs identified. plan: Home independently. Date Signed: 08/23/2017 02:52 PM Electronically Signed By:Danielle Huerta RN
--- NOTE | 2017-08-23 14:54 | ASMTLACE ---
LACE Length of stay for Answers: 1 day current admission Acuity / Level of Answers: Yes Care: Did the patient have an inpatient admission? Comorbidities - select Answers: Any tumor (including all that apply lymphoma or leukemia) Other Notes: Hx of sepsis # of Emergency department Answers: 1-2 visits in the last 6 months Score: 8 Date Signed: 08/23/2017 02:53 PM Electronically Signed By:Danielle Huerta RN
[2017-08-26] MEDS ORDERED: TESTOSTERONE IM 100 MG/ML SYRINGE IM SCH (11:43)
== END 2017-08-23 11:55 | disposition home or self-care (01) ==
LOC: INTOOBSV 03:07 → F1N 04:01
PROVIDERS: ADMIT Student in an Organized Health Care Education/Training Program; ATTEND Student in an Organized Health Care Education/Training Program
DX: N39.0 Urinary tract infection, site not specified (principal); N13.30 Unspecified hydronephrosis; N17.9 Acute kidney failure, unspecified; E27.40 Unspecified adrenocortical insufficiency; K21.9 Gastro-esophageal reflux disease without esophagitis; Z85.51 Personal history of malignant neoplasm of bladder; Z85.72 Personal history of non-Hodgkin lymphomas; Z87.891 Personal history of nicotine dependence; Z96.0 Presence of urogenital implants; Z93.6 Other artificial openings of urinary tract status; Z88.0 Allergy status to penicillin
CPT/HCPCS: 76770; 99285; G0378; J0692; J0696; J1642

== ENCOUNTER → 2018-06-10 | Outpatient (CLI) | payer OTHER ==
[~2018-06-10] MED LIST: FUROSEMIDE 40 MG/4 ML VIAL ONE
== END ==
LOC: FIMAGING 10:27
PROVIDERS: ATTEND Urology
DX: C68.9 Malignant neoplasm of urinary organ, unspecified (principal); N13.9 Obstructive and reflux uropathy, unspecified
CPT/HCPCS: 78708; A9562; J1940

== ENCOUNTER 2018-06-11 12:25 | Day surgery (SDC) | payer OTHER ==
[2018-06-11] MEDS ORDERED: NALOXONE HCL 0.4 MG/ML INJ IVP PRN (13:08)
[2018-06-11] MEDS ORDERED: FLUMAZENIL 0.5 MG/5 ML MDV IVP PRN (13:08)
[2018-06-11] MEDS ORDERED: MEPERIDINE 25 MG/ML SYR IVP PRN (13:08)
[2018-06-11] MEDS ORDERED: MIDAZOLAM 2 MG/2 ML VIAL IVP PRN (13:08)
[2018-06-11] MEDS ORDERED: fentaNYL 100 MCG/2 ML INJ IVP PRN (13:08)
[2018-06-11] MEDS ORDERED: NS 1,000 ML IV SCH (13:15)
[2018-06-11] MEDS ORDERED: HYDROCORTISONE 100 MG/2 ML VIAL IV ONE (13:30)
[2018-06-11 13:46] LABS: PLATELET COUNT 184 10^3/uL (150-400)
[2018-06-11] MEDS ORDERED: CEFAZOLIN 1 GM/DEXTROSE/50 ML BAG IV ONE (13:49)
[2018-06-11 14:02] LABS: INR 0.94 (0.83-1.16); PROTIME(PATIENT) 12.2 SEC (12.0-15.0)
[2018-06-11] MEDS ORDERED: FUROSEMIDE 40 MG/4 ML VIAL ONE (15:27)
[2018-06-11] MEDS ORDERED: FUROSEMIDE 40 MG/4 ML VIAL IVP ONE (15:30)
[2018-06-11] MEDS ORDERED: MIDAZOLAM 2 MG/2 ML VIAL ONE (15:44)
[2018-06-11] MEDS ORDERED: fentaNYL 100 MCG/2 ML INJ ONE (15:44)
[2018-06-11] MEDS ORDERED: LIDOCAINE 1% 300 MG/30 ML SDV ONE (16:52)
[2018-06-11] MEDS ORDERED: IOPAMIDOL (ISOVUE-300) 100 ML BTL ONE (16:52)
--- NOTE | 2018-06-11 17:00 | PDPROPOC ---
Sedation Plan of Care ASA Classification: ASA 2 Mallampati Score: Class 2 Mallampati Reference Image:
--- NOTE | 2018-06-11 17:01 | PDRADPN ---
Radiology Procedure Note Date of Procedure: 06/11/18 Radiologist: Keith Goldman Anesthesia: IV Sedation Pre-op Diagnosis: presumed UPJ obstruction Post-op Diagnosis: same Procedure: percutaneous right nephroureteral tube Inf/Abcess present in the surg proc area at time of surgery?: No
[2018-06-11] MEDS ORDERED: ACETAMINOPHEN 325 MG TAB PO PRN (17:02)
[2018-06-11 20:11] VITALS: BP 106/53
== END 2018-06-11 20:30 | disposition home or self-care (01) ==
LOC: FIMAGING 12:25
PROVIDERS: ATTEND Urology
PROC: 0T9630Z Drainage of Right Ureter with Drainage Device, Percutaneous Approach (ICD-10-PCS; principal; 2018-06-11 17:19)
PROC: 0TW530Z Revision of Drainage Device in Kidney, Percutaneous Approach (ICD-10-PCS; principal; 2018-06-11 17:19)
DX: N28.89 Other specified disorders of kidney and ureter (principal); Z85.51 Personal history of malignant neoplasm of bladder
CPT/HCPCS: 50435; 99152; 99153; C1729; C1769; C1894; J0690; J0696; J1642; J1720; J1940; J2250; J2310; J3010; Q9967

== ENCOUNTER 2018-06-24 07:34 | Day surgery (SDC) | payer OTHER ==
[2018-06-24] MEDS ORDERED: FLUMAZENIL 0.5 MG/5 ML MDV IVP PRN (07:39)
[2018-06-24] MEDS ORDERED: MIDAZOLAM 2 MG/2 ML VIAL IVP PRN (07:39)
[2018-06-24] MEDS ORDERED: fentaNYL 100 MCG/2 ML INJ IVP PRN (07:39)
[2018-06-24] MEDS ORDERED: NALOXONE HCL 0.4 MG/ML INJ IVP PRN (07:39)
[2018-06-24] MEDS ORDERED: ONDANSETRON 4 MG/2 ML VIAL IVP ONE (07:39)
[2018-06-24] MEDS ORDERED: NS 1,000 ML IV SCH (07:45)
[2018-06-24] MEDS ORDERED: FLUMAZENIL 0.5 MG/5 ML MDV IVP ONE (08:39)
[2018-06-24] MEDS ORDERED: NALOXONE HCL 0.4 MG/ML INJ ONE (08:39)
[2018-06-24] MEDS ORDERED: MIDAZOLAM 2 MG/2 ML VIAL ONE (08:40)
[2018-06-24] MEDS ORDERED: fentaNYL 100 MCG/2 ML INJ ONE (08:40)
--- NOTE | 2018-06-24 08:41 | PDPROPOC ---
Sedation Plan of Care ASA Classification: ASA 2 Mallampati Score: Class 2 Mallampati Reference Image:
[2018-06-24] MEDS ORDERED: HYDROCORTISONE 100 MG/2 ML VIAL IVP ONE (08:45)
[2018-06-24] MEDS ORDERED: LIDOCAINE 1% 300 MG/30 ML SDV ONE (09:04)
[2018-06-24] MEDS ORDERED: IOPAMIDOL (ISOVUE-300) 100 ML BTL ONE (09:04)
[2018-06-24] MEDS ORDERED: ONDANSETRON 4 MG/2 ML VIAL IVP PRN (09:31)
[2018-06-24] MEDS ORDERED: ACETAMINOPHEN 325 MG TAB PO PRN (09:31)
--- NOTE | 2018-06-24 09:33 | PDRADPN ---
Radiology Procedure Note Date of Procedure: 06/24/18 Radiologist: Keith Goldman Anesthesia: IV Sedation Pre-op Diagnosis: ureteral stenosis Post-op Diagnosis: same Procedure: nephroureteral to JJ stent Inf/Abcess present in the surg proc area at time of surgery?: No
[2018-06-24 10:14] VITALS: BP 104/69
== END 2018-06-24 10:55 | disposition home or self-care (01) ==
LOC: FIMAGING 07:34
PROVIDERS: ATTEND Radiology Diagnostic Radiology
DX: N28.89 Other specified disorders of kidney and ureter (principal); Z85.51 Personal history of malignant neoplasm of bladder
CPT/HCPCS: 50435; 75984; 99152; C1729; C1769; J1642; J1644; J1720; J2250; J2310; J3010; Q9967